=== PATIENT | female | born 1985 | race Caucasian/White ===

== ENCOUNTER → 2018-02-24 16:43 | Outpatient (CLI) | payer OTHER, SELFPAY ==
[2018-02-24 17:23] LABS: Absolute Lymphocyte Count 2.28 X10^3/ul (0.83-4.51); Absolute Neutrophil Count 3.9 X10^3/uL (2.0-7.7); Basophil# 0.03 X10^3/uL; Basophil% 0.4 % (0-1); Eosinophil# 0.22 X10^3/uL; Eosinophils% 3.2 % (0-5); Hemoglobin 12.9 g/dl (12.0-15.0); Lymphocyte # 2.28 X10^3/ul (4.0); Lymphocyte % 33.3 % (19-41); Mean Corp Hgb Conc 33.1 g/gl (32-36); Mean Corpuscular Hgb 30.1 pg (27.0-32.0); Mean Corpuscular Volume 91.1 fL (81-99); Mean Platelet Vol. 11.4 fl (6.2-12.0); Monocyte# 0.39 X10^3/uL; Monocyte% 5.7 % (0-10); Neutrophil # 3.92 X10^3/uL (2.7-7.7); Neutrophil % 57.3 % (47-70); Platelet Count 231 K/mm3 (150-450); RBC Distribution Width CV 12.6 % (11.6-14.6); RBC Distribution Width SD 41.6 fl (35.1-43.9); Red Blood Count 4.28 M/mm3 (4.2-5.4); White Blood Count 6.9 K/mm3 (4.4-11.0)
[2018-02-24 17:25] LABS: POSITIVE COUNT NO; POSITIVE DIFFERENTIAL NO; POSITIVE MORPHOLOGY NO
[2018-02-24 17:50] LABS: Vitamin D,25 Hydroxy 37.7 ng/mL (29.95-100.01)
[2018-02-24 17:51] LABS: Anion Gap 7 (5-15); BUN 14 mg/dL (7-18); BUN/Creat Ratio 17.8 RATIO (10-20); Calcium,Total 8.9 mg/dL (8.5-10.1); Chloride 104 mmol/L (98-107); Creatinine, Serum 0.78 mg/dL (0.55-1.02); EST Glomerular Filtration Rate 89 mL/min (>60); Est Glom Filt Rate - Afr Amer 108 mL/min (>60); Glucose 88 mg/dL (74-106); Potassium 4.1 mmol/L (3.5-5.1); Sodium Level 142 mmol/L (136-145); T4 Free Direct 0.94 ng/dL (0.76-1.46); Thyroid Stim Hormone (TSH) 1.59 uIU/mL (0.358-3.74)
== END ==
PROVIDERS: Family Provider Family Medicine; PCP Family Medicine; Visit Provider Family Medicine
DX: F32.9 Major depressive disorder, single episode, unspecified (principal); E03.9 Hypothyroidism, unspecified; E55.9 Vitamin D deficiency, unspecified
CPT/HCPCS: 36415; 80048; 82306; 84439; 84443; 85025

== ENCOUNTER → 2019-04-27 15:03 | Outpatient (CLI) | payer BC, SELFPAY ==
[2019-04-27 17:36] LABS: Absolute Lymphocyte Count 1.37 X10^3/uL (0.83-4.51); Absolute Neutrophil Count 9.1 X10^3/uL (2.0-7.7); Basophil# 0.03 X10^3/uL; Basophil% 0.3 % (0-1); Eosinophil# 0.01 X10^3/uL; Eosinophils% 0.1 % (0-5); Hematocrit 42.8 % (37-47); Hemoglobin 13.5 g/dL (12.0-15.0); Lymphocyte # 1.37 X10^3/ul (4.0); Lymphocyte % 12.7 % (19-41); Mean Corp Hgb Conc 31.5 g/dL (32-36); Mean Corpuscular Hgb 29.9 pg (27.0-32.0); Mean Corpuscular Volume 94.7 fL (81-99); Mean Platelet Vol. 10.6 fl (6.2-12.0); Monocyte# 0.23 X10^3/uL; Monocyte% 2.1 % (0-10); NRBC Flagged by Analyzer 0 % (0-5); Neutrophil # 9.08 X10^3/uL (2.7-7.7); Neutrophil % 83.8 % (47-70); Platelet Count 316 K/mm3 (150-450); RBC Distribution Width CV 12.2 % (11.6-14.6); RBC Distribution Width SD 42.5 fl (35.1-43.9); Red Blood Count 4.52 M/mm3 (4.2-5.4); White Blood Count 10.8 K/mm3 (4.4-11.0)
[2019-04-27 17:57] LABS: Vitamin D,25 Hydroxy 30.5 ng/mL (29.95-100.01)
[2019-04-27 18:17] LABS: ALB/GLOB Ratio 1.1 RATIO (0.9-2.4); AST(SGOT) 14 U/L (15-37); Alanine Aminotransfer ALT/SGPT 33 U/L (13-56); Alkaline Phosphatase 70 U/L (45-117); Anion Gap 8 (5-15); BUN 22 mg/dL (7-18); BUN/Creat Ratio 26.1 RATIO (10-20); Chloride 103 mmol/L (98-107); Creatinine, Serum 0.84 mg/dL (0.55-1.02); EST Glomerular Filtration Rate 81 mL/min (>60); Est Glom Filt Rate - Afr Amer 98 mL/min (>60); Globulin 3.7 g/dL (2.2-4.2); Glucose 111 mg/dL (74-106); Potassium 4.3 mmol/L (3.5-5.1); Protein, Total 7.7 g/dL (6.4-8.2); Sodium Level 140 mmol/L (136-145); T4 Free Direct 1.01 ng/dL (0.76-1.46); Thyroid Stim Hormone (TSH) 0.54 uIU/mL (0.358-3.74)
[2019-05-02 13:52] LABS: V-Zoster IgG (Immunity) 1633 index (Immune >165)
== END ==
PROVIDERS: Family Provider Family Medicine; PCP Family Medicine; Visit Provider Family Medicine
DX: Z01.84 Encounter for antibody response examination (principal); J45.901 Unspecified asthma with (acute) exacerbation; E03.9 Hypothyroidism, unspecified; B34.9 Viral infection, unspecified; R42 Dizziness and giddiness
CPT/HCPCS: 36415; 80053; 82306; 84439; 84443; 85025; 86787

== ENCOUNTER → 2020-01-30 16:00 | Outpatient (CLI) | payer BC, SELFPAY ==
[2020-01-30 16:58] LABS: Absolute Lymphocyte Count 2.09 X10^3/uL (0.83-4.51); Absolute Neutrophil Count 4.4 X10^3/uL (2.0-7.7); Basophil# 0.05 X10^3/uL; Basophil% 0.7 % (0-1); Eosinophil# 0.21 X10^3/uL; Eosinophils% 2.9 % (0-5); Hemoglobin 12.5 g/dL (12.0-15.0); Lymphocyte # 2.09 X10^3/ul (4.0); Lymphocyte % 29.1 % (19-41); Mean Corp Hgb Conc 32.1 g/dL (32-36); Mean Corpuscular Hgb 30.5 pg (27.0-32.0); Mean Corpuscular Volume 95.1 fL (81-99); Mean Platelet Vol. 10.9 fl (6.2-12.0); Monocyte# 0.47 X10^3/uL; Monocyte% 6.5 % (0-10); NRBC Flagged by Analyzer 0 % (0-5); Neutrophil # 4.35 X10^3/uL (2.7-7.7); Neutrophil % 60.5 % (47-70); Platelet Count 261 K/mm3 (150-450); RBC Distribution Width CV 12.1 % (11.6-14.6); RBC Distribution Width SD 42.2 fl (35.1-43.9); White Blood Count 7.2 K/mm3 (4.4-11.0)
[2020-01-30 18:23] LABS: Anion Gap 7 (5-15); BUN 22 mg/dL (7-18); BUN/Creat Ratio 23.7 RATIO (10-20); Calcium,Total 8.9 mg/dL (8.5-10.1); Chloride 103 mmol/L (98-107); Creatinine, Serum 0.93 mg/dL (0.55-1.02); EST Glomerular Filtration Rate 72 mL/min (>60); Est Glom Filt Rate - Afr Amer 88 mL/min (>60); Glucose 99 mg/dL (74-106); Potassium 3.6 mmol/L (3.5-5.1); Sodium Level 139 mmol/L (136-145); T4 Free Direct 1.05 ng/dL (0.76-1.46); Thyroid Stim Hormone (TSH) 1.66 uIU/mL (0.358-3.74)
== END ==
PROVIDERS: PCP Family Medicine; Visit Provider Family Medicine
DX: E03.9 Hypothyroidism, unspecified (principal); F41.9 Anxiety disorder, unspecified; R53.83 Other fatigue
CPT/HCPCS: 36415; 80048; 84439; 84443; 85025

== ENCOUNTER → 2020-02-14 11:00 | Outpatient (CLI) | payer BC, SELFPAY ==
[2020-02-02 10:01] VITALS: BMI 35.1
== END ==
PROVIDERS: PCP Family Medicine; Visit Provider Internal Medicine Critical Care Medicine
DX: G47.10 Hypersomnia, unspecified (principal)
CPT/HCPCS: 95806

== ENCOUNTER → 2022-04-25 | Outpatient (CLI) | payer BC, SELFPAY ==
[2022-04-25 09:59] LABS: Absolute Lymphocyte Count 1.84 X10^3/uL (0.83-4.51); Absolute Neutrophil Count 4.1 X10^3/uL (2.0-7.7); Basophil# 0.03 X10^3/uL; Basophil% 0.5 % (0-1); Eosinophil# 0.27 X10^3/uL; Eosinophils% 4.1 % (0-5); Hematocrit 39.4 % (37-47); Hemoglobin 12.7 g/dL (12.0-15.0); Lymphocyte # 1.84 X10^3/ul (0.83-4.51); Mean Corp Hgb Conc 32.2 g/dL (32-36); Mean Corpuscular Hgb 30.5 pg (27.0-32.0); Mean Corpuscular Volume 94.7 fL (81-99); Mean Platelet Vol. 10.5 fl (6.2-12.0); Monocyte# 0.36 X10^3/uL; Monocyte% 5.5 % (0-10); NRBC Flagged by Analyzer 0 % (0-5); Neutrophil # 4.06 X10^3/uL (2.7-7.7); Neutrophil % 61.7 % (47-70); Platelet Count 274 K/mm3 (150-450); RBC Distribution Width CV 12.1 % (11.6-14.6); Red Blood Count 4.16 M/mm3 (4.2-5.4); White Blood Count 6.6 K/mm3 (4.4-11.0)
[2022-04-25 10:10] LABS: Vitamin D,25 Hydroxy 58.5 ng/mL
[2022-04-25 10:15] LABS: ALB/GLOB Ratio 0.9 RATIO (0.9-2.4); AST(SGOT) 13 U/L (15-37); Alanine Aminotransfer ALT/SGPT 24 U/L (13-56); Albumin, Serum 3.3 g/dL (3.2-5.0); Alkaline Phosphatase 50 U/L (45-117); Anion Gap 6 (5-15); BUN 11 mg/dL (7-18); BUN/Creat Ratio 12.5 RATIO (10-20); Chloride 107 mmol/L (98-107); Cholesterol 191 mg/dL (200); Creatinine, Serum 0.88 mg/dL (0.55-1.02); EST Glomerular Filtration Rate 76 mL/min (>60); Est Glom Filt Rate - Afr Amer 92 mL/min (>60); Globulin 3.8 g/dL (2.2-4.2); Glucose 87 mg/dL (74-106); High Density Lipoprotein 63 mg/dL; Potassium 4.1 mmol/L (3.5-5.1); Protein, Total 7.1 g/dL (6.4-8.2); Sodium Level 142 mmol/L (136-145); Triglycerides 206 mg/dL
[2022-04-25 10:16] LABS: T4 Free Direct 0.92 ng/dL (0.76-1.46); Thyroid Stim Hormone (TSH) 2.95 uIU/mL (0.358-3.74); Very Low Density Lipoprotein 41 mg/dL (5-40)
== END | disposition home or self-care (01) ==
LOC: MTLAB 08:15
PROVIDERS: PCP Family Medicine; Referring Provider Family Medicine; Visit Provider Family Medicine
DX: Z00.00 Encounter for general adult medical examination without abnormal findings (principal); E03.9 Hypothyroidism, unspecified; E55.9 Vitamin D deficiency, unspecified; J45.909 Unspecified asthma, uncomplicated
CPT/HCPCS: 36415; 80053; 80061; 82306; 84439; 84443; 85025

== ENCOUNTER → 2022-09-04 | Outpatient (CLI) | payer BC, SELFPAY ==
[2022-09-04 18:51] LABS: T4 Free Direct 0.95 ng/dL (0.76-1.46); Thyroid Stim Hormone (TSH) 1.75 uIU/mL (0.358-3.74)
== END | disposition home or self-care (01) ==
LOC: BFHLAB 16:32
PROVIDERS: PCP Family Medicine; Visit Provider Family Medicine
DX: E03.9 Hypothyroidism, unspecified (principal)
CPT/HCPCS: 36415; 84439; 84443

== ENCOUNTER → 2022-09-15 | Outpatient (CLI) | payer BC, SELFPAY ==
[2022-09-15 12:36] LABS: Erythrocyte Sedimentation Rate 6 mm/hr (0-30)
[2022-09-15 12:49] LABS: ALB/GLOB Ratio 0.9 RATIO (0.9-2.4); AST(SGOT) 19 U/L (15-37); Alanine Aminotransfer ALT/SGPT 23 U/L (13-56); Albumin, Serum 3.2 g/dL (3.2-5.0); Alkaline Phosphatase 43 U/L (45-117); Anion Gap 4 (5-15); BUN 17 mg/dL (7-18); BUN/Creat Ratio 19.2 RATIO (10-20); CRP 5.06 mg/L (0.0-3.0); Calcium,Total 9.1 mg/dL (8.5-10.1); Chloride 104 mmol/L (98-107); Creatinine, Serum 0.89 mg/dL (0.55-1.02); EST Glomerular Filtration Rate 75 mL/min (>60); Est Glom Filt Rate - Afr Amer 91 mL/min (>60); Globulin 3.6 g/dL (2.2-4.2); Glucose 95 mg/dL (74-106); Magnesium 2.1 mg/dL (1.6-2.6); Potassium 3.9 mmol/L (3.5-5.1); Protein, Total 6.8 g/dL (6.4-8.2); Sodium Level 138 mmol/L (136-145)
[2022-09-16 13:08] LABS: Anti-Centromere B Ab <0.2 AI (0.0-0.9); Anti-Chromatin <0.2 AI (0.0-0.9); Anti-Jo <0.2 AI (0.0-0.9); Anti-Scleroderma-70 AB <0.2 AI (0.0-0.9); RNP Ab <0.2 AI (0.0-0.9); SJOGREN'S Anti-SS-A test < 0.2 AI (0.0-0.9); SJOGREN'S Anti-SS-B test < 0.2 AI (0.0-0.9); Smith Ab <0.2 AI (0.0-0.9)
[2022-09-16 19:53] LABS: Anti-dsDNA Ab 1 IU/mL (0-9)
== END | disposition home or self-care (01) ==
LOC: BIMLAB 10:53
PROVIDERS: PCP Internal Medicine; Referring Provider Internal Medicine; Visit Provider Internal Medicine
DX: M79.604 Pain in right leg (principal); M79.605 Pain in left leg; F41.9 Anxiety disorder, unspecified
CPT/HCPCS: 36415; 80053; 83735; 85652; 86140; 86225; 86235

== ENCOUNTER → 2023-01-08 | Outpatient (CLI) | payer BC, SELFPAY ==
--- NOTE | 2023-01-08 13:06 | VDLE_ITS ---
Reason For Study: Left leg pain RIGHT LEFT CFV is compressible, spontaneous, phasic, GSV is normal. competent and demonstrates normal CFV is compressible, spontaneous, phasic, augmentation. competent, and demonstrates normal Procedure augmentation. This is a venous duplex using B-mode, color FV is compressible, spontaneous, phasic, flow and spectral Doppler. competent and demonstrates normal Exam performed in department. augmentation. A preliminary report was called and/or faxed POP V is compressible, spontaneous, phasic, to Jolynn KHOURY. competent and demonstrates normal augmentation. T/P Trunk is compressible. LT PerV is compressible. Acute deep vein thrombosis is noted in the PTV. It is dilated and NONCOMPRESSIBLE. VL/Venous Duplex US, Unilateral Interpretation Summary Acute deep venous thrombosis left posterior tibial vein Patent and compressible left great saphenous vein Normal flow patterns right common femoral vein Ordering Physician: Jolynn Erickson Referring Physician: Laurence Oates Performed By: Shobha Eldridge RVT
== END | disposition home or self-care (01) ==
LOC: CVS 13:05
PROVIDERS: PCP Internal Medicine
DX: M79.662 Pain in left lower leg (principal)
CPT/HCPCS: 93971

== ENCOUNTER → 2023-01-17 | Outpatient (CLI) | payer BC, SELFPAY ==
--- NOTE | 2023-01-17 09:18 | MRI_ITS ---
EXAM: MR LEFT LOWER EXTREMITY WITHOUT INTRAVENOUS CONTRAST, ANKLE CLINICAL INDICATION: Pain TECHNIQUE: Multiplanar and multisequence MR images of the left ankle without intravenous contrast. COMPARISON: January 05, 2023 FINDINGS: LIGAMENTS: ANTERIOR TALOFIBULAR: Anterior talofibular ligament is not well seen and may be chronically disrupted. Signal alteration involving the superficial and deep fibers of the deltoid ligamentous complex may represent an up to moderate grade sprain injury. Remaining ligaments of the ankle are intact. POSTERIOR TALOFIBULAR: Unremarkable. Intact. ANTERIOR TIBIOFIBULAR: Unremarkable. Intact. POSTERIOR TIBIOFIBULAR: Unremarkable. Intact. CALCANEOFIBULAR: Unremarkable. Intact. DELTOID: See above. SPRING: Unremarkable. Intact. LISFRANC: Unremarkable. Intact. TENDONS: ACHILLES: Unremarkable. Intact. FLEXOR: Unremarkable. Intact. EXTENSOR: Unremarkable. Intact. PERONEAL: Unremarkable. Intact. TIBIALIS ANTERIOR: Unremarkable. Intact. TIBIALIS POSTERIOR: Unremarkable. Intact. MUSCLES: Muscles are normal. FLUID: Small to moderate posterior subtalar joint effusion. No tibiotalar joint effusion. SINUS TARSI: Sinus Tarsi is normal. TARSAL TUNNEL: Unremarkable. PLANTAR FASCIA: Mild thickening of the central cord of plantar aponeurosis although there is no evidence for active plantar fasciitis fasciitis. CARTILAGE: Unremarkable. No osteochondral lesion. Articular cartilage intact. BONES/JOINTS: Unremarkable. No bone marrow signal alterations. No osteochondral lesions or defects at the tibiotalar articulation. OTHER SOFT TISSUES: Tendons are intact. No tenosynovitis. MRI/Lower Ext Joint Only (Routine) IMPRESSION: 1. Anterior talofibular ligament is not well seen and may be chronically disrupted. Signal alteration involving the superficial and deep fibers of the deltoid ligamentous complex may represent an up to moderate grade sprain injury. 2. Mild thickening of the central cord of plantar aponeurosis although there is no evidence for active plantar fasciitis fasciitis. 3. Small to moderate posterior subtalar joint effusion. Electronically Signed: Inder Mandujano MD at 22:37 EDT ,
== END | disposition home or self-care (01) ==
LOC: MRI 09:12
PROVIDERS: PCP Internal Medicine
DX: S93.05XA Dislocation of left ankle joint, initial encounter (principal); X58.XXXA Exposure to other specified factors, initial encounter
CPT/HCPCS: 73721

== ENCOUNTER 2023-02-02 12:07 | Emergency (ER) | payer BC, SELFPAY ==
[2023-02-02 12:09] VITALS: BP 135/85; PULSE 84; RESP 14; TEMP 36.1; O2SAT 95; BMI 34.2
--- NOTE | 2023-02-02 12:50 | RAD_ITS ---
STUDY: X-RAY - RIGHT FOOT CLINICAL: Female, 37 years old. Pain following injury. TECHNIQUE: 3 view(s) of the foot. COMPARISON: Comparison is made with prior study February 01, 2015. FINDINGS: Normal talus, calcaneus, and tarsal bones. Normal visualized subtalar, talonavicular, calcaneocuboid, tarsal and tarsometatarsal articulations. Normal metatarsi. Normal metatarsophalangeal joint of the great toe. Normal tibial and fibular sesamoid bones. Normal interphalangeal joint of the great toe. Normal phalanges of the great toe. Normal second through fifth metatarsophalangeal joints. Normal interphalangeal joints and phalanges of the lesser toes. The soft tissue structures are unremarkable. RAD/Foot min 3 Views IMPRESSION: Normal x-ray examination of the foot. Electronically Signed: Eduardo Rodrigues MD at 13:54 EDT ,
--- NOTE | 2023-02-02 13:12 | CT_ITS ---
STUDY: CT BRAIN WITHOUT CONTRAST REASON FOR EXAM: Female, 37 years old. Trampled by a horse. The patient is on anticoagulants. RADIATION DOSAGE (If Supplied By Facility): CTDIvol = ( 44.99 ) mGy, DLP = ( 796.11 ) mGycm TECHNIQUE: Transaxial CT imaging of the brain was performed without administration of intravenous contrast material. Individualized dose optimization techniques were used for this CT. COMPARISON: No relevant priors. FINDINGS: Normal soft tissue structures. Normal calvarium. Normal size ventricles and extra-axial spaces for the patient''s age. Normal white matter tracts of the cerebral hemispheres. Normal basal ganglia and thalami. Normal brainstem. Normal cerebellum. There is no intracranial hemorrhage. There are no findings of an acute ischemic infarction. Mucosal thickening of the left maxillary sinus. Prior ORIF of the bilateral anterior maxillary condon. CT/Brain/Head without Contrast IMPRESSION: Normal unenhanced CT scan of the brain. Electronically Signed: Eduardo Rodrigues MD at 14:00 EDT ,
--- NOTE | 2023-02-02 13:12 | CT_ITS ---
STUDY: CT CHEST WITHOUT CONTRAST REASON FOR EXAM: Female, 37 years old. Blunt trauma left. The patient is on anticoagulants. RADIATION DOSAGE (If Supplied By Facility): CTDIvol = ( 16.76 ) mGy, DLP = ( 489.82 ) mGycm TECHNIQUE: Transaxial imaging was performed without the administration of intravenous contrast material. Multiplanar coronal and sagittal images were reformatted. Individualized dose optimization techniques were used for this CT. COMPARISON: No relevant priors. FINDINGS: CHEST The lungs are normal. There is no demonstrated pleural abnormality. Normal heart and pericardium. Normal mediastinum. Normal hilar regions. Normal unenhanced pulmonary arteries. Normal aorta arch and descending thoracic aorta. There are mild degenerative changes of the thoracic spine. There is no demonstrated abnormality of the visualized upper abdomen. CT/Chest without Contrast IMPRESSION: Normal unenhanced CT chest examination. Electronically Signed: Eduardo Rodrigues MD at 14:04 EDT ,
--- NOTE | 2023-02-02 13:14 | EDS_ITS ---
HPI History of Present Illness Chief Complaint: Trauma Informant: patient Narrative Narrative: Patient states she was leading a horse and the horse became spooked, knocked her down onto her stomach, she laid prone covered the back of her head while the horse then trampled over her. She felt the horse hit both lower extremities, her left upper back, and her hand as it was covering her head. She denies any loss of consciousness. She jumped up and was able to stand and walk without any difficulty. She is on a apixaban because of a DVT and this is the main reason she presents because of the risk of internal bleeding with injury. She has no abdominal or low back discomfort or neurologic symptoms. [facility] Medical History Anal fissure Anxiety Asthma Depression Environmental allergies Hypersomnia Hypothyroid Obesity Plantar fasciitis Vitamin D deficiency Home Medications cetirizine 10 mg tablet 5 mg PO DAILY 02/01/15 [History Last Taken 07/18/15 22:00] albuterol sulfate 90 mcg/actuation aerosol inhaler (Ventolin HFA) 2 puff inhalation Q6H PRN 02/02/20 [History Last Taken Unknown] ascorbate calcium (vitamin C) 500 mg tablet 500 mg PO DAILY 02/02/20 [History Last Taken Unknown] azelastine 0.05 % eye drops 1 drp ophthalmic (eye) BID PRN 02/02/20 [History Last Taken Unknown] cholecalciferol (vitamin D3) 125 mcg (5,000 unit) capsule 125 mcg PO DAILY 02/02/20 [History Last Taken Unknown] multivitamin 1 cap PO DAILY 02/02/20 [History Last Taken Unknown] citalopram 10 mg tablet (Celexa) 10 mg PO DAILY 09/15/22 [History Last Taken Unknown] magnesium 250 mg tablet 250 mg PO DAILY 09/15/22 [History Last Taken Unknown] norgestimate-ethinyl estradiol 0.18 mg/0.215mg/0.25mg-35 mcg(28)tablet (Tri- Sprintec (28)) 1 tab PO DAILY 09/15/22 [History Last Taken Unknown] montelukast 10 mg tablet 10 mg PO DAILY #90 tabs 10/21/22 [Rx Last Taken Unknown] levothyroxine 88 mcg tablet 88 mcg PO DAILY #30 tabs 12/17/22 [Rx Last Taken Unknown] naproxen 500 mg tablet 500 mg PO BID PRN pain #30 tabs 01/05/23 [Rx Last Taken Unknown] apixaban 5 mg tablet (Eliquis) 5 mg PO BID DVT 3 months #180 tabs 01/08/23 [Rx Last Taken Unknown] meloxicam 15 mg tablet 15 mg PO DAILY Pain #30 tabs 01/08/23 [Rx Last Taken Unknown] Allergy/AdvReac Type Severity Reaction Status Date / Time sulfamethoxazole Allergy Mild Itching Verified 02/02/23 12:09 [From Bactrim] trimethoprim [From Bactrim] Allergy Mild Itching Verified 02/02/23 12:09 penicillin Allergy Rash Verified 02/02/23 12:09 clarithromycin [From Biaxin] AdvReac Abd Verified 02/02/23 12:09 cramps/diarrhea Family History Mother Hypertension CVA (cerebral vascular accident) Hyperlipidemia Father Hypertension Grandmother CAD (coronary artery disease) Surgical History History of history of fistulotomy History of mandibular surgery Social History household members: spouse, significant other and children current occupational status: employed 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 [employer] Smoking Status: Never smoker Electronic Cigarette Use: not used alcohol intake: current alcohol intake frequency: holidays/special occasions only substance use type: does not use do you feel safe at home: Yes ROS ROS ED Constitutional Constitutional ED: Denies chills or fever(s) Eyes Eyes: Denies change in vision or diplopia ENT ENT ED: Denies ear pain, epistaxis, facial pain or rhinorrhea Cardiovascular Cardiovascular: Denies chest pain or palpitations Respiratory/Chest Respiratory/Chest: Denies cough or dyspnea Gastrointestinal Gastrointestinal: Denies abdominal pain, diarrhea, melena, nausea or vomiting Genitourinary Genitourinary ED: Denies dysuria or hematuria Musculoskeletal Musculoskeletal: Reports extremity pain; Denies back pain or neck pain Integumentary Reports other Details: Bruises ; Denies abscess, Abrasions, laceration or rash Neurologic Neurologic: Reports headache(s); Denies confusion, paresthesias or weakness EXAM Physical Exam Const Vital Signs: 02/02/23 12:09 02/02/23 12:17 Temperature 97 F L Temperature Source Temporal Pulse Rate 84 Respiratory Rate 14 Respiratory Effort Normal Non-Labored Blood Pressure 135/85 H Blood Pressure Mean 101 Pulse Ox 95 Oxygen Delivery Method Room Air Room Air Positive well nourished and well developed General Appearance ED: well developed and NAD HEENT Reports TM's clear and nasal mucous membranes and turbinates normal atraumatic Face and Sinus: Negative for facial tenderness Tympanic Membrane ED: Yes TM's clear Eyes PERRL and EOMs intact bilaterally Visual Acuity: other Other Details: no entrapment or pain with extraocular movements Neck full ROM and supple General: Negative for tenderness Chest Wall inspection of chest normal and palpation of chest normal Chest: symmetrical chest wall rise; Negative for crepitus or tenderness Resp normal respiratory effort and clear to auscultation bilaterally Percussion: other equal BS bilat Cardio no murmurs Rate: regular rate Rhythm: regular rhythm GI normal to inspection, nondistended, normoactive bowel sounds, soft to palpation and non-tender Back/Spine normal ROM Back/Spine Narrative: Only area of objective trauma and tenderness is over the left scapula. Nothing in her low back. Cervical Spine: Negative for cervical spine tenderness Thoracic Spine / Upper Back: Negative for thoracic spinal tenderness Lumbar Spine / Lower Back: Negative for lumbar spinal tenderness Extremity normal to inspection and full ROM Extremity Narrative: Old contusion right lateral mid lower leg nontender. New contusion medial left calf proximally but distal to the knee joint, tender there but not at the tibia or the fibula. Tender and normal in appearance to the medial aspect of the right forefoot, not including the lateral malleolus or any other parts of the foot. No deformities, full range of motion of the right ankle and all other joints of all 4 extremities, she does have pain in this left scapula with abduction of the left shoulder but she is able to do so without difficulty and there is no deformity or tenderness at the acromion, subacromial fossa, or the humerus. Acromioclavicular joints nontender bilaterally and the clavicles are nontender. General Extremety ED: Yes tenderness Neuro oriented x3, CN's II-XII intact bilaterally, moves all extremities, no focal motor deficits and no sensory deficits noted [place] Coma Scale: document GCS findings Spontaneous Obeys Commands Oriented 15 Sensorium / Orientation: awake and alert Psych mental status grossly normal and thought process normal Skin no wounds Lesions: no lesions Rashes: no rashes MDM MDM MDM Narrative Medical decision making narrative: I am at a very low suspicion of internal injury here. Because of the mechanism and the trauma to her left periscapular area I think a CT of the chest is warranted in addition to a CT of the head, both of which since this just happened even though she does not have significant chest symptoms, I do not think she needs an abdominal or retroperitoneal CT/imaging although we discussed the and she is in agreement. The only area of her extremities that she needs x- rayed right now is her right foot which is done as well. She had to go to the bathroom so we did obtain a urine sample which we sent for urinalysis to screen for bleeding as well. There is a very trace amount of blood in it without any red blood cells, I do not think this is indicating a renal injury, we discussed what to watch for and reasons to return. Three-view x-ray series of the right foot on my interpretation negative, radiology in agreement. I reviewed the CT images of the head and the chest, as well as the interpretation which I agree with, basically negative for any acute injury. I am at a very low pretest probability/suspicion for a lung or intrathoracic organ injury, which is why I avoided contrast and we were not needing to do her abdomen/pelvis at this time. She was given Tylenol, and ice pack for the area of her left upper back which is hurting more than anything else, and instructions for follow-up. Lab Data Attestation: I reviewed the patient's lab results. Labs: Laboratory Results - last 24 hr 02/02/23 13:45 Urine Color Yellow Urine Clarity Sl. Cloudy Urine pH 7.0 Ur Specific [place] 1.010 Urine Protein Negative Urine Glucose (UA) Normal Urine Ketones Negative Urine Occult Blood 10 H Urine Nitrite Negative Urine Bilirubin Negative Urine Urobilinogen Normal Ur Leukocyte Esterase 500 H Urine RBC 0-5 SEEN Urine WBC 50-100 SEEN Ur Squamous Epith Cells 10-25 SEEN Ur Transition Epith Cell 0-5 SEEN Urine Bacteria 1+ Urine Mucus 0 SEEN Radiography Diagnostic Testing: Clinical Impression(s) from Imaging Studies Foot X-Ray 02/02/23 12:50 IMPRESSION: Normal x-ray examination of the foot. Electronically Signed: Eduardo Rodrigues MD at 13:54 EDT , Brain CT 02/02/23 13:12 IMPRESSION: Normal unenhanced CT scan of the brain. Electronically Signed: Eduardo Rodrigues MD at 14:00 EDT , Chest CT 02/02/23 13:12 IMPRESSION: Normal unenhanced CT chest examination. Electronically Signed: Eduardo Rodrigues MD at 14:04 EDT , Discharge Plan Triage Chief Complaint: Trauma ED Provider: Hira Mccabe Dx/Rx/DC Orders Clinical Impression: Anticoagulated, Back contusion, Contusion of left calf, Closed head injury without loss of consciousness, Contusion of foot, right Instructions: ED Foot Contusion, ED Back Contusion, ED Head Injury (Adult) Prescriptions: No Action cholecalciferol (vitamin D3) 125 mcg (5,000 unit) capsule 125 mcg PO DAILY azelastine 0.05 % drops 1 drp OPHTHALMIC BID PRN albuterol sulfate [Ventolin HFA] 90 mcg/actuation HFA aerosol inhaler 2 puff INHALATION Q6H PRN ascorbate calcium (vitamin C) 500 mg tablet 500 mg PO DAILY multivitamin capsule 1 cap PO DAILY citalopram [Celexa] 10 mg tablet 10 mg PO DAILY magnesium 250 mg tablet 250 mg PO DAILY norgestimate-ethinyl estradiol [Tri-Sprintec (28)] 0.18/0.215/0.25 mg-35 mcg (28) tablet 1 tab PO DAILY naproxen 500 mg tablet 500 mg PO BID PRN (Reason: pain) Qty: 30 0RF Hold Instructions: Order Changed meloxicam 15 mg tablet 15 mg PO DAILY Qty: 30 0RF Hold Instructions: Order Changed Rx Instructions: Do not take in conjunction with other NSAIDs. Tylenol is okay. Eliquis 5 mg tablet 5 mg PO BID 90 Days Qty: 180 0RF Rx Instructions: 10mg twice a day for 7 days. Then 5 mg twice a day for 3 months. cetirizine 10 MG tablet 5 mg PO DAILY montelukast 10 mg tablet 10 mg PO DAILY Qty: 90 0RF levothyroxine 88 mcg tablet 88 mcg PO DAILY Qty: 30 4RF Primary Care Provider: Laurence Oates Referrals: Laurence Oates MD [Primary Care Provider] - 3-5 Days if not improving Activity Restrictions/Additional Instructions: Your urine showed have symptoms this will be sent for culture and if positive in a couple days you should get a phone call from us but follow-up with your doctor to make sure you review the results. Disposition Disposition: Home, Self Care
[2023-02-02 13:53] LABS: Mucous, Urine 0 SEEN /hpf (<or=2+)
[2023-02-02 13:54] LABS: Color, Urine Yellow (Yellow); Glucose, Dipstick Normal (Normal); Ketone-Dipstick Negative (Negative); Leukocyte Esterase-Dipstick 500 /ul (Negative); Nitrite-Dipstick Negative (Negative); Occult Blood-Urine 10 /ul (Negative); Protein-Dipstick Negative (Negative); Urine Bilirubin Dipstick Negative (Negative); Urine Clarity Sl. Cloudy (Clear); Urine Urobilinogen Normal (Normal)
[2023-02-02] MEDS: Acetaminophen 500 MG Tablet 1000 MG PO (13:58)
[2023-02-02 14:10] LABS: Red Blood Cells-Urine 0-5 SEEN /hpf (0-5); Squamous Epithelial Cells - UA 10-25 SEEN /hpf (5-10); White Blood Cells 50-100 SEEN /hpf (0-5)
[2023-02-02 14:11] LABS: Bacteria 1+ /hpf (None Seen); Transitional Epithelial - Ur 0-5 SEEN /hpf (0-5)
[2023-02-02 14:22] VITALS: BP 131/71; PULSE 81; RESP 14; O2SAT 98
== END 2023-02-02 14:25 | disposition home or self-care (01) ==
PROVIDERS: Emergency Provider Emergency Medicine; PCP Internal Medicine; Visit Provider Emergency Medicine
DX: S20.229A Contusion of unspecified back wall of thorax, initial encounter (principal); S80.12XA Contusion of left lower leg, initial encounter; S09.90XA Unspecified injury of head, initial encounter; S90.31XA Contusion of right foot, initial encounter; Z79.01 Long term (current) use of anticoagulants; Z86.718 Personal history of other venous thrombosis and embolism; X58.XXXA Exposure to other specified factors, initial encounter
CPT/HCPCS: 70450; 71250; 73630; 81001; 87077; 87086; 87088; 99283

== ENCOUNTER → 2023-04-06 | Outpatient (CLI) | payer OTHER, SELFPAY ==
[2023-04-06 12:12] LABS: Absolute Lymphocyte Count 1.74 X10^3/uL (0.83-4.51); Basophil# 0.04 X10^3/uL; Basophil% 0.8 % (0-1); Eosinophil# 0.15 X10^3/uL; Eosinophils% 2.9 % (0-5); Hematocrit 42.9 % (37-47); Hemoglobin 13.4 g/dL (12.0-15.0); Lymphocyte # 1.74 X10^3/ul (0.83-4.51); Lymphocyte % 33.1 % (19-41); Mean Corp Hgb Conc 31.2 g/dL (32-36); Mean Corpuscular Hgb 29.6 pg (27.0-32.0); Mean Corpuscular Volume 94.9 fL (81-99); Mean Platelet Vol. 11.2 fl (6.2-12.0); Monocyte# 0.29 X10^3/uL; Monocyte% 5.5 % (0-10); NRBC Flagged by Analyzer 0 % (0-5); Neutrophil # 3.03 X10^3/uL (2.7-7.7); Neutrophil % 57.5 % (47-70); Platelet Count 274 K/mm3 (150-450); RBC Distribution Width CV 12.4 % (11.6-14.6); RBC Distribution Width SD 43.2 fl (35.1-43.9); Red Blood Count 4.52 M/mm3 (4.2-5.4); White Blood Count 5.3 K/mm3 (4.4-11.0)
[2023-04-06 12:45] LABS: Vitamin D,25 Hydroxy 62.5 ng/mL
[2023-04-06 14:34] LABS: ALB/GLOB Ratio 0.9 RATIO (0.9-2.4); AST(SGOT) 22 U/L (15-37); Alanine Aminotransfer ALT/SGPT 32 U/L (13-56); Albumin, Serum 3.4 g/dL (3.2-5.0); Alkaline Phosphatase 54 U/L (45-117); Anion Gap 7 (5-15); BUN 19 mg/dL (7-18); BUN/Creat Ratio 20.9 RATIO (10-20); Calcium,Total 8.7 mg/dL (8.5-10.1); Chloride 106 mmol/L (98-107); Creatinine, Serum 0.91 mg/dL (0.55-1.02); EST Glomerular Filtration Rate 73 mL/min (>60); Est Glom Filt Rate - Afr Amer 89 mL/min (>60); Globulin 3.8 g/dL (2.2-4.2); Glucose 81 mg/dL (74-106); Potassium 3.9 mmol/L (3.5-5.1); Protein, Total 7.2 g/dL (6.4-8.2); Rheumatoid Factor < 10.0 IU/mL (<15); Sodium Level 139 mmol/L (136-145); Thyroid Stim Hormone (TSH) 2.52 uIU/mL (0.358-3.74)
[2023-04-07 13:07] LABS: CCP IgG Antibodies 8 units (0-19)
[2023-04-08 13:08] LABS: Anti-Nuclear Antibody Test Negative (.)
== END | disposition home or self-care (01) ==
LOC: BIMLAB 08:10
PROVIDERS: PCP Internal Medicine; Referring Provider Internal Medicine; Visit Provider Internal Medicine
DX: E03.9 Hypothyroidism, unspecified (principal); F41.9 Anxiety disorder, unspecified; R53.83 Other fatigue; E56.9 Vitamin deficiency, unspecified
CPT/HCPCS: 36415; 80053; 82306; 84443; 85025; 86038; 86200; 86431

== ENCOUNTER → 2023-04-16 | Outpatient (CLI) | payer OTHER, SELFPAY ==
--- NOTE | 2023-04-16 12:38 | VDLE_ITS ---
Reason For Study: pain Procedure LEFT This is a venous duplex using B-mode, color GSV is normal. flow and spectral Doppler. CFV is compressible, spontaneous, phasic, Exam performed in department. competent, and demonstrates normal The exam was abbreviated due to the COVID 19 augmentation. protocol. FV is compressible, spontaneous, phasic, The exam was diagnostic. competent and demonstrates normal A preliminary report was called and/or faxed augmentation. to Jolynn KHOURY. POP V is compressible, spontaneous, phasic, competent and demonstrates normal augmentation. T/P Trunk is compressible. PTV is compressible. LT PerV is compressible. Previous PTV DVT from 01/08/23 has resolved. VL/Venous Duplex US, Unilateral Interpretation Summary Deep veins of the left lower extremity are patent and compressible segmentally. There is no evidence of left lower extremity deep vein thrombosis. The left great saphenous vein yesica ears patent and compressible segmentally. Resolution of prior thrombus Ordering Physician: Jolynn Erickson Referring Physician: Jolynn Erickson Performed By: Jeremy Sarmiento, RVT
== END | disposition home or self-care (01) ==
LOC: CVS 12:38
PROVIDERS: PCP Internal Medicine
DX: I82.442 Acute embolism and thrombosis of left tibial vein (principal)
CPT/HCPCS: 93971

== ENCOUNTER → 2023-05-06 | Outpatient (CLI) | payer OTHER, SELFPAY ==
[2023-05-11 14:08] LABS: Antithrombin 3 Function 84 % (75-135); Dilute Prothrombin Time (dPT) 37.3 sec (0.0-47.6); Dilute Russell Viper Venom 41.1 sec (0.0-47.0); Factor VIII Activity 127 % (56-140); Interpretation Comment: (.); PTT-LA 37.7 sec (0.0-43.5); Protein C Antigen 98 % (60-150); Protein S, Free 78 % (61-136); Protein S, Total 56 % (60-150); Thrombin Time 18.8 sec (0.0-23.0); dPT Confirm Ratio 1.08 Ratio (0.00-1.34)
== END | disposition home or self-care (01) ==
LOC: BIMLAB 09:39
PROVIDERS: PCP Internal Medicine; Visit Provider Internal Medicine
DX: I82.409 Acute embolism and thrombosis of unspecified deep veins of unspecified lower extremity (principal); Z82.49 Family history of ischemic heart disease and other diseases of the circulatory system
CPT/HCPCS: 36415; 81241; 85240; 85245; 85300; 85302; 85305; 85306

== ENCOUNTER → 2023-05-26 | Outpatient (CLI) | payer OTHER, SELFPAY | END | disposition home or self-care (01) | PROVIDERS: PCP Internal Medicine; Referring Provider Internal Medicine; Visit Provider Internal Medicine | DX: R07.89 Other chest pain (principal); N76.0 Acute vaginitis; B96.89 Other specified bacterial agents as the cause of diseases classified elsewhere | CPT/HCPCS: 87070; 87077; 87205; 87633 ==

== ENCOUNTER → 2023-08-10 | Outpatient (CLI) | payer OTHER, SELFPAY | END | disposition home or self-care (01) | LOC: LABSPEC 13:25 | PROVIDERS: PCP Internal Medicine; Referring Provider Nurse Practitioner Women's Health; Visit Provider Nurse Practitioner Women's Health | DX: N76.0 Acute vaginitis (principal); B96.89 Other specified bacterial agents as the cause of diseases classified elsewhere | CPT/HCPCS: 87070; 87077; 87186; 87205 ==

== ENCOUNTER → 2023-08-21 | Outpatient (CLI) | payer OTHER, SELFPAY ==
--- NOTE | 2023-08-21 09:29 | BI_ITS ---
MAMMOGRAPHY - BILATERAL DIAGNOSTIC REASON FOR EXAM: Female, 37 years old. Fullness in the upper outer quadrant of the left breast. PERTINENT HISTORY: Non-contributory. TECHNIQUE: Digital bilateral breast susannah (3D mammographic acquisition) in the CC and MLO projections. 2-D mediolateral oblique (MLO) and craniocaudad (CC) views of both breasts were obtained. CAD: Full Field Digital Mammography with Computer Added Detection was performed. COMPARISON: Comparison is made with prior outside examination dated January 04, 2020. FINDINGS: Breast Composition: The breasts are extremely dense, which lowers the sensitivity of mammography. There are no dominant masses or suspicious calcifications. No other significant abnormalities are identified. There has been no significant change since the prior study. BI/DIAG MAMM W/CAD, BILAT IMPRESSION: Stable bilateral diagnostic mammogram. With the patient''s history of a fullness in the upper outer quadrant of the left breast, targeted ultrasound correlation is recommended. ASSESSMENT CATEGORY: BIRADS Category 0: Incomplete. Need additional imaging evaluation. A letter regarding these results will be sent to the patient by the facility within 30 days. Approximately 10% of breast cancers are not detected by mammography. A normal mammogram should not delay biopsy of a clinically suspicious abnormality. Electronically Signed: Eduardo Rodrigues MD at 12:32 EST ,
--- NOTE | 2023-08-21 09:29 | US_ITS ---
STUDY: ULTRASOUND BREAST - LEFT REASON FOR EXAM: Female, 37 years old. Palpable lump left breast. TECHNIQUE: Axial and longitudinal images of the LEFT breast were performed with a high resolution ultrasound transducer. # OF IMAGES: 15 COMPARISON: Comparison is made with prior mammogram done earlier in the day. FINDINGS: LEFT Breast: The upper outer quadrant of the left breast was examined with ultrasound. There is dense fibroglandular tissue. No sonographic abnormality is seen. US/Breast Limited Unilateral IMPRESSION: Dense fibroglandular tissue. No sonographic abnormality is seen. ASSESSMENT CATEGORY: BIRADS Category 2: Benign. A letter regarding these results will be sent to the patient by the facility within 30 days. Electronically Signed: Eduardo Rodrigues MD at 12:33 EST ,
--- OUTSIDE RECORDS SUMMARY | 2023-08-21 09:46 | XMS RPT_ITS | CCD ---
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 clitoris and check the clitoral vásquez, followed by urethra, perineum and anal area also. Look for redness, swelling, dark spots or light spots, blisters or bumps. Some Suggested Vulvar Pain & Itching measures If you get irritated easily, we suggest: Minimizing irritation of the vulva (area around the vagina): Wear white cotton underwear. Avoid synthetic fabrics and tight clothing. Sleep wearing shorts or pajama bottoms without underwear. Shower as soon as possible after exercise. Avoid clothing detergents and soaps with perfumes or dyes. Use warm (not hot) water to wash the vulva and if you use soap use a product designed for sensitive skin (like Dove or Cetaphil). Extra rinsing to make sure all detergent residues is gone. Do not douche or use creams/powders in the vulvar area unless instructed by your physician. Rinse with water after using the bathroom.Make sure the vulva is dry before dressing by patting dry with a towel. Avoid vigorous rubbing with the towel. You may want to use the blow dryer (on the cool setting only!) on the vulva. The most important way to let your body heal is by avoiding scratching. Many patients find it difficult to avoid scratching at night when they are most aware of the itchiness. You can try taking Benadryl just before bedtime. Some women find it helpful to wear cotton gloves to bed to avoid scratching at night. Watch out for irritants e.g. condoms or spermicidal creams Important Things to Remember About Vulvar Pain: Vulvar pain can be difficult to treat. Treatment may take months. Some women may have spontaneous remission of symptoms, while others may need multiple attempts with medical management. Vulvar pain is not generally associated with malignancy. It is usually not associated with sexually transmitted disease and is not contagious to your partner and Vulvar pain is usually not due to poor hygiene. Use gentle soap or no soap, allowing water alone to cleanse the perineum.Treatment setbacks can occur; they are not the faults of your ricardo care provider or you. WE UNDERSTAND THAT CHRONIC PAIN IS EXHAUSTING AND MAYBE DEMORALIZING: It is not about you, there is nothing wrong with you as a person, and the problem is your pain- It is good to seek knowledge and second opinion and to get involved in a support group documented in this encounter [facility] 09-12-2022 Note HNO ID: [id number] Author: Dena Kim APRN.DREDGING INSPECTOR Service: ? Author Type: Nurse Practitioner Type: Progress Notes Filed: 09/12/2022 3:01 PM Note Text: [employer] Insurance offered: Patient declines. Daisy He is a 36 year old female who presents for vaginal intermittent discharge and cramping for 1 week(s). Symptoms are fairly mild compared to other BV occurrences. Spotting x 1 day. Treated for BV 04/25/2022 and 08/08/2022 Takes Clairvee routinely. Vaginal discharge: white milky, had blood tinge one day. Itching: No Dyspareunia: No Fever/chills: No Abdominal pain: No Bladder: Negative for dysuria or frequency Bowel: No blood in stool, pain with BM, tarry stool, persistent diarrhea or constipation Any new sexual partners or concern for STD exposure: No, same partner x 1 year Any history of STDs: None Does your partner have any new complaints: No Are you currently taking any medications to treat vaginitis: No Do you use feminine sprays, douches or deodorants: No Menstrual cycle: cycles every 28 days and 3-4 days of flow Contraception: combined hormonal contraceptives Last pap: 2018, normal Past medical, surgical, social history, medications and allergies reviewed and updated. OBJECTIVE: BP 104/62 Wt 187 lb (84.8kg) LMP 08/20/2022 GENERAL: Well developed, well nourished in no apparent distress ABDOMEN: soft, non-tender, and no masses PELVIC: external genitalia normal, normal Bartholin's glands, urethra, [place]'s glands, no vulvar lesions, no cervical lesions, good vaginal support, small amount white discharge present, normal appearing perineal body and perianal region BIMANUAL: uterus normal size, shape and consistency, no adnexal masses, and non-tender. ASSESSMENT/PLAN: 1. Acute vaginitis - ICD9: 616.10, ICD10: N76.0 - Continue probiotic. - RepHresh/boric acid - SUGEY / TRICHOMONAS AMPLIFICATION - BACTERIAL VAGINOSIS AMPLIFICATION - Vulvar hygiene instructions. Consider use of condoms. Will notify of results. Follow- up as needed. Dena Kim APRN.ANA Medical Decision Making: Problems: Low: Acute, uncomplicated illness or injury Data: Unique test result(s) reviewed: 2 Unique test(s) ordered: 3+ Medical Decision Making Level: 3 - Low [facility] 09-12-2022 Instructions Dena Kim APRN.ANA - 09/12/2022 2:52 PM EST Vaginal boric acid RepHresh Minimizing irritation of the vulva (area around the vagina) Wear white cotton underwear. Avoid synthetic fabrics and tight clothing. Sleep wearing shorts or pajama bottoms without underwear. Shower as soon as possible after exercise. Avoid clothing detergents and soaps with perfumes or dyes. Use warm (not hot) water to wash the vulva and if you use soap use a product designed for sensitive skin (like Dove or Cetaphil). Dove unscented bar soap. Do not douche or use creams/powders in the vulvar area unless instructed by your physician. If you must douche, use only plain warm water. Make sure the vulva is dry before dressing by patting dry with a towel. Avoid vigorous rubbing with the towel. You may want to use the blow dryer (on the cool setting only!) on the vulva. The most important way to let your body heal is by avoiding scratching. Many patients find it difficult to avoid scratching at night when they are most aware of the itchiness. You can try taking Benadryl just before bedtime. Some women find it helpful to wear cotton gloves to bed to avoid scratching at night. documented in this encounter [facility] 09-12-2022 History of Presen t illness Narrative [employer] Insurance offered: Patient declines. Daisy He is a 36 year old female who presents for vaginal intermittent discharge and cramping for 1 week(s). Symptoms are fairly mild compared to other BV occurrences. Spotting x 1 day. Treated for BV 04/25/2022 and 08/08/2022 Takes Clairvee routinely. Vaginal discharge: white milky, had blood tinge one day. Itching: No Dyspareunia: No Fever/chills: No Abdominal pain: No Bladder: Negative for dysuria or frequency Bowel: No blood in stool, pain with BM, tarry stool, persistent diarrhea or constipation Any new sexual partners or concern for STD exposure: No, same partner x 1 year Any history of STDs: None Does your partner have any new complaints: No Are you currently taking any medications to treat vaginitis: No Do you use feminine sprays, douches or deodorants: No Menstrual cycle: cycles every 28 days and 3-4 days of flow Contraception: combined hormonal contraceptives Last pap: 2018, normal Past medical, surgical, social history, medications and allergies reviewed and updated. OBJECTIVE: BP 104/62 Wt 187 lb (84.8kg) LMP 08/20/2022 GENERAL: Well developed, well nourished in no apparent distress ABDOMEN: soft, non-tender, and no masses PELVIC: external genitalia normal, normal Bartholin's glands, urethra, [place]'s glands, no vulvar lesions, no cervical lesions, good vaginal support, small amount white discharge present, normal appearing perineal body and perianal region BIMANUAL: uterus normal size, shape and consistency, no adnexal masses, and non-tender. ASSESSMENT/PLAN: 1. Acute vaginitis - ICD9: 616.10, ICD10: N76.0 - Continue probiotic. - RepHresh/boric acid - SUGEY / TRICHOMONAS AMPLIFICATION - BACTERIAL VAGINOSIS AMPLIFICATION - Vulvar hygiene instructions. Consider use of condoms. Will notify of results. Follow- up as needed. Dena Kim APRN.CNP Medical Decision Making: Problems: Low: Acute, uncomplicated illness or injury Data: Unique test result(s) reviewed: 2 Unique test(s) ordered: 3+ Medical Decision Making Level: 3 - Low documented in this encounter [facility] 08-11-2022 Miscellaneous Notes Addended by: BEHZAD VAZQUEZ RN on: 08/11/2022 08:26 AM Modules accepted: Orders documented in this encounter [facility] 08-08-2022 Note HNO ID: [id number] Author: Gabby Sheffield APRN.CNM Service: ? Author Type: Booking Supervisor Type: Progress Notes Filed: 08/08/2022 3:40 PM Note Text: Daisy He is a 36 year old female who presents for vaginal itching, discharge and pelvic pressure for the past week. History of bacterial vaginosis on 01/29/22 and 04/25/22. Patient diligently practicing vulvar/vaginal hygiene. Sexually active in monogamous relationship and declines STD screening today. Vaginal discharge: moderate amount, thick, and white. Itching: YES Dyspareunia: No Fever/chills: No Abdominal pain: No Bladder: Negative for dysuria or frequency Bowel: No blood in stool, pain with BM, tarry stool, persistent diarrhea or constipation Any new sexual partners or concern for STD exposure: No Any history of STDs: None Does your partner have any new complaints: No Are you currently taking any medications to treat vaginitis: No but taking Clairvee due to hx of bacterial vaginosis Do you use feminine sprays, douches or deodorants: No Menstrual cycle: LMP 07/23/22- Contraception: combined hormonal contraceptives Last pap: 2018, normal Past medical, surgical, social history, medications and allergies reviewed and updated. OBJECTIVE: BP 110/68 Wt 184 lb 9.6 oz (83.7kg) LMP 07/23/2022 GENERAL: Well developed, well nourished in no apparent distress ABDOMEN: soft, non-tender, and no masses PELVIC: external genitalia normal, normal Bartholin's glands, urethra, [place]'s glands, no vulvar lesions, no cervical lesions, good vaginal support, physiologic discharge present, normal appearing perineal body and perianal region, cervix friable BIMANUAL: uterus normal size, shape and consistency, no adnexal masses, non-tender, and no cervical motion tenderness. RECTOVAGINAL: deferred. ASSESSMENT/PLAN: 1. Recurrent vaginitis - ICD9: 616.10, ICD10: N76.0 - SUGEY / TRICHOMONAS AMPLIFICATION - BACTERIAL VAGINOSIS AMPLIFICATION - Continue taking Clairvee - Possible referral to Dr. Fonseca for evaluation 2. Pelvic pressure - UA- positive for trace blood and leukocytes- would like to wait on culture results prior to treatment - URINE CULTURE Will notify patient of results RTO- for annual with MEGAN Sheffield APRN.CNM [facility] 08-08-2022 History of Presen t illness Narrative Daisy He is a 36 year old female who presents for vaginal itching, discharge and pelvic pressure for the past week. History of bacterial vaginosis on 01/29/22 and 04/25/22. Patient diligently practicing vulvar/vaginal hygiene. Sexually active in monogamous relationship and declines STD screening today. Vaginal discharge: moderate amount, thick, and white. Itching: YES Dyspareunia: No Fever/chills: No Abdominal pain: No Bladder: Negative for dysuria or frequency Bowel: No blood in stool, pain with BM, tarry stool, persistent diarrhea or constipation Any new sexual partners or concern for STD exposure: No Any history of STDs: None Does your partner have any new complaints: No Are you currently taking any medications to treat vaginitis: No but taking Clairvee due to hx of bacterial vaginosis Do you use feminine sprays, douches or deodorants: No Menstrual cycle: LMP 07/23/22- Contraception: combined hormonal contraceptives Last pap: 2018, normal Past medical, surgical, social history, medications and allergies reviewed and updated. OBJECTIVE: BP 110/68 Wt 184 lb 9.6 oz (83.7kg) LMP 07/23/2022 GENERAL: Well developed, well nourished in no apparent distress ABDOMEN: soft, non-tender, and no masses PELVIC: external genitalia normal, normal Bartholin's glands, urethra, [place]'s glands, no vulvar lesions, no cervical lesions, good vaginal support, physiologic discharge present, normal appearing perineal body and perianal region, cervix friable BIMANUAL: uterus normal size, shape and consistency, no adnexal masses, non-tender, and no cervical motion tenderness. RECTOVAGINAL: deferred. ASSESSMENT/PLAN: 1. Recurrent vaginitis - ICD9: 616.10, ICD10: N76.0 - SUGEY / TRICHOMONAS AMPLIFICATION - BACTERIAL VAGINOSIS AMPLIFICATION - Continue taking Clairvee - Possible referral to Dr. Fonseca for evaluation 2. Pelvic pressure - UA- positive for trace blood and leukocytes- would like to wait on culture results prior to treatment - URINE CULTURE Will notify patient of results RTO- for annual with PAP Gabby Sheffield APRN.CNM documented in this encounter [facility] 07-16-2022 Note HNO ID: [id number] Author: Elva Virgen APRN.CNM Service: ? Author Type: Booking Supervisor Type: Progress Notes Filed: 07/17/2022 10:37 AM Note Text: [employer] Insurance offered: Patient declines. Daisy is a 36 year old who presents for an annual gynecologic exam without complaints. Going through divorce, dating new partner for 9 months. Daughters, 12 and 7. Medical Assistance at [facility]. Menses: cycles every 28 days and 3-4 days of flow. Denies any warning signs ACHES Contraception: combined hormonal contraceptives, condoms, and withdrawal HPV vaccine: No Last Pap: 02/19/2018 normal HPV: 02/16/2018 negative History of abnormal pap: Yes Last mammogram: 2019normal Sexually active: Yes Time with current partner: Going through divorce. Dating new partner in last 9 months- STD testing in last year Pain with intercourse: No Postcoital bleeding: No Exercise: No Diet: regular Seatbelt use: Yes OB History T2 L2 SAB0 IAB0 Ectopic0 Multiple0 Live Births2 Public Health Staff Nurse History LMP: 06/26/2022 (Exact Date), Having periods Age at Menarche: Age at First : Age at Menopause: Public Health Staff Nurse History Comments: Sexual Activity: Yes; Male Contraception: Pill PAST MEDICAL HISTORY Diagnosis Date Allergic rhinitis, cause unspecified Allergy, airborne subst Anal fistula 2013 Chronic anxiety History of pre-eclampsia in prior , currently Pure hyperglyceridemia Temporomandibular joint disorders, unspecified Unspecified asthma(493.90) only flares w/ illness Unspecified hypothyroidism ??? subclinical (TSH 5-6), see phone encounter 02/04 PAST SURGICAL HISTORY Procedure Laterality Date DELIVERY ONLY 2009 , low transverse DELIVERY ONLY 07/19/15 , low transverse PAST SURGICAL HISTORY OF 07/2006 jaw surgery due to bite abnomalitiy SURG TX ANAL FISTULA INTERSPHINCTERIC 10/25/13 posterior superficial FAMILY HISTORY Problem Relation Age of Onset Hypertension Mother Asthma Mother Diabetes Mother GESTATIONAL DIABETES ONLY other (goiter) Mother no hypothyroidism Stroke Mother Hypertension Father Cancer Maternal Grandmother PANCREATIC CANCER Thyroid Paternal Grandmother ?? specifics Alzheimer's Disease Paternal Grandmother Diabetes Maternal Uncle SOCIAL HISTORY Social History Tobacco Use Smoking status: Never Smokeless tobacco: Never Vaping Use Vaping Use: Never used Substance Use Topics Alcohol use: Yes Comment: Seldom Drug use: No REVIEW OF SYSTEMS Abdomen: No abdominal pain, nausea, vomiting, diarrhea, or constipation. No bloating, early satiety, indigestion, or increased flatulence. Bladder: No dysuria, gross hematuria, urinary frequency, urinary urgency, or incontinence. Breast: No breast lumps, nipple d/c, overlying skin changes, redness or skin retraction. Allergies and current medication updated:Yes EXAM: BP 106/64 Ht 5' 2 (1.58m) Wt 181 lb 12.8 oz (82.5kg) LMP 06/26/2022 BMI 33.24 kg/(m2). GENERAL: pleasant, female in no apparent distress HEENT: Normocephalic, atraumatic, mucus membranes moist, and no lesions NECK: Supple, full range of motion, no adenopathy, and thyroid normal DERMATOLOGY: Normal, without lesions, non-icteric, and non-hirsute BREAST: soft, non-tender, symmetric, no dominant mass, normal nipple-areolar complex, no lymphadenopathy, and no nipple discharge CHEST: Clear to auscultation, Normal inspiratory effort, Regular rate and rhythm, and No murmurs, clicks, rubs or gallops ABDOMEN: soft, non-tender, and no masses PELVIC: external genitalia normal, normal Bartholin's glands, urethra, [place]'s glands, no vulvar lesions, no cervical lesions, good vaginal support, physiologic discharge present, normal appearing perineal body and perianal region BIMANUAL: uterus normal size, shape and consistency, no adnexal masses, non-tender, and no cervical motion tenderness RECTOVAGINAL: rectovaginal exam negative for any masses or nodularity. NEURO: alert and oriented x3,exam grossly non-focal EXTREMITIES: normal ASSESSMENT/PLAN: ASSESSMENT/PLAN: 1. Encounter for gynecological examination with abnormal finding - ICD9: V72.31, ICD10: Z01.411 (primary diagnosis) - Completed pelvic and breast exam - Encouraged monthly BSE - Follow up for annual exam in one year. 2. Encounter for surveillance of contraceptive pills - ICD9: V25.41, ICD10: Z30.41 - discussed with patient on how to take OCP's. - counseled on benefits, risks and possible severe side effects of OCP's. - discussed need to use Condoms to help to prevent STD's including HIV etc. 3. Class 1 obesity due to excess calories without serious comorbidity with body mass index (BMI) of 33.0 to 33.9 in adult - ICD9: 278.00, V85.33, ICD10: E66.09, Z68.33 Stable - Behavioral intervention 1) Health maintenance: Pap/HPV up to date. 2) Contraception: combined hormonal contr (more content not included)... [facility] 07-16-2022 Instructions Elva Virgen APRN.CNM - 07/16/2022 11:14 AM EST ACOG Screening Guidelines The following health screening schedule is recommended by the [employer] (ACOG). Some of these tests may be ordered or performed by your primary care doctor. Pap test screening The pap test looks at cells on the cervix (the opening from the vagina to the uterus) to look for cancer or pre-cancerous changes. These changes are caused by the human papillomavirus (HPV). Studies estimate that half of all women will test positive for this virus within 3 years of starting sexual activity. For young women with a normal immune system, 90% of HPV infections will resolve within 2 years. There is a vaccine available against some forms of HPV. This is recommended for girls and women age 9-45. For ages 9-14, two injections are given at 0 and 6 months. For ages 15-45, three injections are given at 0,2 and 6 months. Because this vaccine does not protect against all HPV types which can cause cervical cancer, women who received the vaccine still need pap tests. Pap smear screening should be started at age 21. The pap test should be done every 3 years from age 21-29. From age 30-65, pap smears can be done every 5 years if HPV test is negative or every 3 years if HPV testing is not done. For women over the age of 65, ACOG recommends against screening women who have had adequate prior screening and are not otherwise at high risk for cervical cancer. Women who have had a hysterectomy also do not need routine pap smear screening unless the pap smear was done for a cervical cancer or moderate to severe dysplasia. Breast cancer screening Mammogram should be performed every 1-2 years starting at age 40 and every year starting at age 50. Screening may be started earlier depending on family history. Cholesterol screening Lipid panel (cholesterol test) should be checked every 5 years starting at age 45. Diabetes screening Fasting glucose (blood sugar) test should be performed every 3 years starting at age 45. Colorectal cancer screening Starting at age 45, women should have a screening colonoscopy at least every 10 years. Screening may be started earlier depending on family history. Thyroid screening Thyroid function test (TSH) should be checked every 5 years starting at age 50. Bone mineral density screening All postmenopausal women age 65 and over and postmenopausal women with risk factors for osteoporosis should have a bone mineral density test performed. Risk factors include race, family history of osteoporosis, personal history of fractures, poor nutrition, smoking, heavy alcohol use, early menopause, low calcium intake and low body weight. Certain medical conditions and long-term use of some medications may also increase risk. Body max Index (BMI) Your body mass index (BMI) is a measure of your body fat based on your weight and height. The number that is calculated will tell you if you fall into the normal, overweight or obese category. BMI Table Normal weight: BMI is between 19 and 24.9 Overweight: BMI is between 25 and 29.9 Obese: BMI is 30 and above Why is BMI important? Being overweight or obese (BMI over 25) can exacerbate or put you at risk for getting certain diseases, like the ones listed below: Arthritis Asthma Cancer Diabetes Mellitus Type 2 Heart Attack High blood pressure Hypertension Hyperlipidemia Kidney failure Other Lung diseases Sleep Apnea Stroke How can I lose weight: Choosing healthy foods in small portions and exercising regularly is a good way to start. The following are a few tips: Choose foods and snacks higher in protein and fiber. Reduce the amount of sugary drinks (like soda) and snacks (cookies, sweets, etc) Cut back on the amount of carbohydrates eaten daily (bread, pasta, rice, cakes) Drink at least 8 glasses of water per day - sometimes thirst feels like hunger - stay hydrated Chew your food slowly to savor the taste and allow the signal that you are full to register in your brain Exercise/Activity Exercise improves your blood flow and circulation, enhances your mood and can you to maintain or lose weight. A brisk walk for 30 mins or longer 4-5 times per week is recommended but you can also use DVD's at home such as Walk Away the Pounds, Juliane exercises, Yoga and others to get some variety. When do I need a referral? If you have tried all of the above and have not lost any weight, then you should ask your provider for a referral to a tumbler dyeing machine operator or medical weight risk management specialist who can help you reach your goals for being at your ideal body weight. Calcium and Vitamin D Supplementation (from the National Institutes of Health Office of Dietary Supplements 2011) Calcium is required by the body for blood vessel, muscle, hormone and nerve functioning. Most of the body's calcium is stored in the bones and teeth where it supports structure and function. Bone is continuously broken down and reformed. When bone breakdown exceeds formation, especially in postmenopausal women, bone loss can increase the risk of osteoporosis and fractures. In addition to low calcium intake, women who smoke, have a family history of osteoporosis, are thin, or , or who take certain medications such as cancer chemotherapy, seizure mediations and steroids are at increased risk of osteoporosis. The calcium requirements in women change with age. The National Institutes of Health (NIH) recommends: 1000mg elemental calcium for premenopausal women age 19-50 1200mg elemental calcium for postmenopausal women and all women over 50 Milk, yogurt, and cheese are rich natural sources of calcium and are the major food contributors in the [place]. For example, 8oz of milk (whole, lowfat or skim) contains about 300mg calcium, 8oz of yogurt contains 415mg. Nondairy sources include salmon and sardines and vegetables, such as Welsh cabbage, kale, and broccoli. Foods fortified with calcium include many fruit juices, tofu and cereals. For more food calcium content information, visit http://ods.od.nih.gov/factsheets /calcium. Calcium supplements come in several different forms. Remember that the recommendations are for millgrams (mg) of elemental calcium which may be less than the total weight of the supplement. The amount of elemental calcium is required to be printed on the label. Calcium carbonate is the least expensive form. It must be taken on a full stomach to be properly absorbed. Some patients may experience gas or constipation. Calcium phosphate and calcium citrate may be taken either with or without food and tend to have less side effects but are generally more expensive. Because of its ability to neutralize stomach acid, calcium carbonate is found in some [id number] antacid products, such as Tums and Rolaids . Depending on its strength, each chewable pill or softchew provides 200 to 400 mg of elemental calcium. The percentage of calcium absorbed depends on the total amount of elemental calcium consumed at one time. Absorption is highest in doses <500mg. So a woman who takes 1,000mg/day of calcium from supplements should split the dose and take 500mg at two separate times during the day. Too much calcium can cause kidney stones, constipation, difficulty absorbing other nutrients and calcium buildup in blood vessels. Women under 50 should not exceed 2500mg/day (2000mg/day for women over 50) of calcium from food and supplements. Excessive alcohol and caffeine intake can inhibit absorption of calcium. Calcium can reduce the absorption of some medications if taken at the same time of day (bisphosphonates, thyroid medication, Phenytoin and other seizure medications, some antibiotics and iron supplements). Vitamin D promotes calcium absorption in the gut and maintains adequate blood levels of calcium and phosphate for normal bone growth and bone remodeling. Vitamin D also helps regulate cell growth as well as nerve, muscle and immune system function. Vitamin D is produced in the skin as a result of ultraviolet sunlight rays and must be altered in the liver and kidney to become its active form. Recommended intake according to the National Institutes of Health is 600 International Units (IU) for girls and women ages 1-70 and 800 IU for women over 70. Very few foods in nature contain vitamin D. The flesh of fatty fish (such as salmon, tuna, and mackerel) and fish liver oils are among the best sources. Small amounts of vitamin D are found in beef liver, cheese, mushrooms and egg yolks. Most people meet at least some of their vitamin D needs through exposure to sunlight. Season, time of day, length of day, cloud cover, smog, skin melanin content, and sunscreen are among the factors that affect UV radiation exposure and vitamin D synthesis. Despite the importance of the sun for vitamin D synthesis, it is prudent to limit exposure of skin to sunlight and avoid tanning beds. UV radiation is a carcinogen responsible for most of the estimated 1.5 million skin cancers that occur annually in the [place]. Lifetime cumulative UV damage to skin is also responsible for some age-associated dryness and other cosmetic changes. In supplements and fortified foods, vitamin D is available in two forms, D2 (ergocalciferol) and D3 (cholecalciferol). The two are equivalent at normal supplement doses. For women who require high supplement doses because of vitamin D deficiency, D3 may work better to raise blood levels. Some medications can prevent proper absorption of Vitamin D. These include laxatives, corticosteroids like prednisone, the seizure drugs phenobarbital and phenytoin, the weight-loss drug orlistat ( Xenical and AlliTM) and the cholesterol-lowering drug cholestyramine (Questran , LoCholest , and Prevalite ). Talk to your doctor about adjusting your recommended daily vitamin D dosage if you take these medications. You should not exceed 4000 mg of vitamin D supplementation daily unless specifically prescribed by your doctor. Gardasil Gardasil is a vaccine to protect against Human Papillomavirus (HPV) types 6, 11, 16, 18, 31,33,45, 52, 58. These viruses cause cancer and precancerous lesions on the cervix (opening between vagina and uterus), in the vagina and on the vulva (skin around the outside of the vagina) as well as genital warts. The vaccine cannot cause these diseases and cannot treat them if already present. Gardasil works best if given before contact with HPV. Most people are exposed to HPV soon after starting sexual activity. The vaccine is recommended between the ages of 9 and 45. Gardasil does not protect against all strains of HPV. Women who receive the vaccine still need to have regular pelvic exams and cervical cancer screening with the pap smear. You should ask your doctor if Gardasil is right for you if you have a weakened immune system, a bleeding disorder, plan to become soon or have a current illness causing fever. Gardasil is not recommended for women. You should be sure your doctor is aware of any allergies you have and all medications and herbal supplements you take. Gardasil is given to those ages 9-14 in 2 doses at 0 and 8 months. In ages 15-45, three injections are given at 0,2,6 months. Common side effects include pain, redness, itching and swelling at the injection site, nausea, fever, dizziness and fainting. Rare but potentially serious reactions have been reported. These include allergic reaction, swollen glands, joint and muscle pain, weakness and Guillain-[place] syndrome. documented in this encounter [facility] 07-16-2022 History of Presen t illness Narrative [employer] Insurance offered: Patient declines. Daisy is a 36 year old who presents for an annual gynecologic exam without complaints. Going through divorce, dating new partner for 9 months. Daughters, 12 and 7. Medical Assistance at [facility]. Menses: cycles every 28 days and 3-4 days of flow. Denies any warning signs ACHES Contraception: combined hormonal contraceptives, condoms, and withdrawal HPV vaccine: No Last Pap: 02/19/2018 normal HPV: 02/16/2018 negative History of abnormal pap: Yes Last mammogram: 2020normal Sexually active: Yes Time with current partner: Going through divorce. Dating new partner in last 9 months- STD testing in last year Pain with intercourse: No Postcoital bleeding: No Exercise: No Diet: regular Seatbelt use: Yes OB History T2 L2 SAB0 IAB0 Ectopic0 Multiple0 Live Births2 Public Health Staff Nurse History LMP: 06/26/2022 (Exact Date), Having periods Age at Menarche: Age at First : Age at Menopause: Public Health Staff Nurse History Comments: Sexual Activity: Yes; Male Contraception: Pill PAST MEDICAL HISTORY Diagnosis Date Allergic rhinitis, cause unspecified Allergy, airborne subst Anal fistula 2013 Chronic anxiety History of pre-eclampsia in prior , currently Pure hyperglyceridemia Temporomandibular joint disorders, unspecified Unspecified asthma(493.90) only flares w/ illness Unspecified hypothyroidism ??? subclinical (TSH 5-6), see phone encounter 02/04 PAST SURGICAL HISTORY Procedure Laterality Date DELIVERY ONLY 2009 , low transverse DELIVERY ONLY 07/19/15 , low transverse PAST SURGICAL HISTORY OF 07/2006 jaw surgery due to bite abnomalitiy SURG TX ANAL FISTULA INTERSPHINCTERIC 10/25/13 posterior superficial FAMILY HISTORY Problem Relation Age of Onset Hypertension Mother Asthma Mother Diabetes Mother GESTATIONAL DIABETES ONLY other (goiter) Mother no hypothyroidism Stroke Mother Hypertension Father Cancer Maternal Grandmother PANCREATIC CANCER Thyroid Paternal Grandmother ?? specifics Alzheimer's Disease Paternal Grandmother Diabetes Maternal Uncle SOCIAL HISTORY Social History Tobacco Use Smoking status: Never Smokeless tobacco: Never Vaping Use Vaping Use: Never used Substance Use Topics Alcohol use: Yes Comment: Seldom Drug use: No REVIEW OF SYSTEMS Abdomen: No abdominal pain, nausea, vomiting, diarrhea, or constipation. No bloating, early satiety, indigestion, or increased flatulence. Bladder: No dysuria, gross hematuria, urinary frequency, urinary urgency, or incontinence. Breast: No breast lumps, nipple d/c, overlying skin changes, redness or skin retraction. Allergies and current medication updated:Yes EXAM: BP 106/64 Ht 5' 2 (1.58m) Wt 181 lb 12.8 oz (82.5kg) LMP 06/26/2022 BMI 33.24 kg/(m^2). GENERAL: pleasant, female in no apparent distress HEENT: Normocephalic, atraumatic, mucus membranes moist, and no lesions NECK: Supple, full range of motion, no adenopathy, and thyroid normal DERMATOLOGY: Normal, without lesions, non-icteric, and non-hirsute BREAST: soft, non-tender, symmetric, no dominant mass, normal nipple-areolar complex, no lymphadenopathy, and no nipple discharge CHEST: Clear to auscultation, Normal inspiratory effort, Regular rate and rhythm, and No murmurs, clicks, rubs or gallops ABDOMEN: soft, non-tender, and no masses PELVIC: external genitalia normal, normal Bartholin's glands, urethra, [place]'s glands, no vulvar lesions, no cervical lesions, good vaginal support, physiologic discharge present, normal appearing perineal body and perianal region BIMANUAL: uterus normal size, shape and consistency, no adnexal masses, non-tender, and no cervical motion tenderness RECTOVAGINAL: rectovaginal exam negative for any masses or nodularity. NEURO: alert and oriented x3,exam grossly non-focal EXTREMITIES: normal ASSESSMENT/PLAN: ASSESSMENT/PLAN: 1. Encounter for gynecological examination with abnormal finding - ICD9: V72.31, ICD10: Z01.411 (primary diagnosis) - Completed pelvic and breast exam - Encouraged monthly BSE - Follow up for annual exam in one year. 2. Encounter for surveillance of contraceptive pills - ICD9: V25.41, ICD10: Z30.41 - discussed with patient on how to take OCP's. - counseled on benefits, risks and possible severe side effects of OCP's. - discussed need to use Condoms to help to prevent STD's including HIV etc. 3. Class 1 obesity due to excess calories without serious comorbidity with body mass index (BMI) of 33.0 to 33.9 in adult - ICD9: 278.00, V85.33, ICD10: E66.09, Z68.33 Stable - Behavioral intervention 1) Health maintenance: Pap/HPV up to date. 2) Contraception: combined hormonal contraceptives, condoms, and withdrawal. Contraceptive options reviewed and information provided. 3) STD screening: Declined STD check- performed earlier this year. 4) Follow up one year or sooner as needed Kaley Mckenna, student DONALD Virgen APRN.ZULMA TEACHING RUG CLEANING SUPERVISOR NOTE OF PERSONAL INVOLVEMENT IN CARE: I have interviewed the patient and updated the RUG CLEANING SUPERVISOR student's PFS history, and ROS as necessary. I have re-performed the HPI, Physical Examination, Assessment and Plan. documented in this encounter [facility] 06-26-2022 Miscellaneous Notes Patient request for medication is as follows: Requested Prescriptions Pending Prescriptions Disp Refills TRI-SPRINTEC 0.18/0.215/0.25 mg-35 mcg (28) 28 tablet 11 Sig: Take 1 tablet by mouth once daily for 28 days. Last annual exam: 05/03/21 Please approve the above prescription(s) to electronically send to pharmacy. Nany Celaya RN documented in this encounter [facility] 04-25-2022 Note HNO ID: [id number] Author: Dena Kim APRN.DREDGING INSPECTOR Service: ? Author Type: Nurse Practitioner Type: Progress Notes Filed: 04/25/2022 8:17 AM Note Text: [employer] Insurance offered: Patient declines. Daisy He is a 36 year old female who presents for vaginal pruritis and discharge for 2 days. Prednisone a couple of weeks ago for asthma flare. 2 weeks ago, which was the week following normal menses, had bilateral breast tenderness and cramping. 4 home UPT negative. Requests urine testing. No dysuria, urinary urgency, frequency or blood in urine. No missed doses of Sprintec. Vaginal discharge: thick white cottage cheese-type Itching: YES Dyspareunia: N/A Fever/chills: No Abdominal pain: see HPI Bladder: Negative for dysuria or frequency Bowel: No blood in stool, pain with BM, tarry stool, persistent diarrhea or constipation Any new sexual partners or concern for STD exposure: No Any history of STDs: None Does your partner have any new complaints: No Are you currently taking any medications to treat vaginitis: Yes, Lotrisone helped a little but symptoms are more internal. Take Clairvee. Uses RepHresh sometimes during 2 weeks without Clairvee Do you use feminine sprays, douches or deodorants: No Menstrual cycle: cycles every 28 days and 4 days of flow Contraception: combined hormonal contraceptives Last pap: 2018, normal Past medical, surgical, social history, medications and allergies reviewed and updated. OBJECTIVE: BP 122/68 Wt 182 lb (82.6kg) LMP 04/02/2022 GENERAL: Well developed, well nourished in no apparent distress ABDOMEN: soft, non-tender, and no masses PELVIC: external genitalia normal, normal Bartholin's glands, urethra, [place]'s glands, no vulvar lesions, no cervical lesions, good vaginal support, moderate amount thick yellow-tinged discharge present, normal appearing perineal body and perianal region BIMANUAL: uterus normal size, shape and consistency, no adnexal masses, and non-tender. ASSESSMENT/PLAN: 1. Acute vaginitis - ICD9: 616.10, ICD10: N76.0 (primary diagnosis) - SUGEY / TRICHOMONAS AMPLIFICATION - BACTERIAL VAGINOSIS AMPLIFICATION - Monistat 7 or generic - a applicator full at bedtime every night for 7 nights. - Continue Clairvee 2. Pelvic cramping - ICD9: 625.9, ICD10: R10.2 - Normal menses, no missed OCP, 4 negative home UPT - UA DIP, URINE (POC) - small intact blood and large leuks - Urine culture 3. Breast tenderness - ICD9: 611.71, ICD10: N64.4 - bilateral - began week after menses and is improving - Normal menses, no missed OCP, 4 negative home UPT Will notify of results. Follow- up as needed. Dena Kim APRN.CNP Medical Decision Making: Problems: Minimal: Self-limited or minor problem Low: Acute, uncomplicated illness or injury Data: Unique test(s) ordered: 2 Risk: Moderate: Drug management Medical Decision Making Level: 3 - Low [facility] 02-18-2022 Instructions Dena Kim APRN.CNP - 02/18/2022 1:16 PM EDT Minimizing irritation of the vulva (area around the vagina) Wear white cotton underwear. Avoid synthetic fabrics and tight clothing. Sleep wearing shorts or pajama bottoms without underwear. Shower as soon as possible after exercise. Avoid clothing detergents and soaps with perfumes or dyes. Use warm (not hot) water to wash the vulva and if you use soap use a product designed for sensitive skin (like Dove or Cetaphil). Do not douche or use creams/powders in the vulvar area unless instructed by your physician. If you must douche, use only plain warm water. Make sure the vulva is dry before dressing by patting dry with a towel. Avoid vigorous rubbing with the towel. You may want to use the blow dryer (on the cool setting only!) on the vulva. The most important way to let your body heal is by avoiding scratching. Many patients find it difficult to avoid scratching at night when they are most aware of the itchiness. You can try taking Benadryl just before bedtime. Some women find it helpful to wear cotton gloves to bed to avoid scratching at night. documented in this encounter [facility] 02-18-2022 History of Presen t illness Narrative Daisy He is a 36 year old female who presents for problem visit recurrent vaginitis symptoms HPI: Completed Flagyl po for BV almost 2 weeks ago. Began with vaginal burning, pain where urine leaves body, white discharge and mild odor 4-5 days later and those symptoms continue Denies urinary frequency, does have some urgency but waits to void because she knows it will hurt. Did start Florajen Women and is following vulvar hygiene instructions. STD testing 12/31/2021 - did have unprotected SI with ex- approximately one week prior to STD testing. HSV negative 01/29/2022 OB History T2 L2 SAB0 IAB0 Ectopic0 Multiple0 Live Births2 Public Health Staff Nurse History LMP: 02/10/2022, Having periods Age at Menarche: Age at First : Age at Menopause: Public Health Staff Nurse History Comments: Sexual Activity: Yes; Male Contraception: Condom PAST MEDICAL HISTORY Diagnosis Date Allergic rhinitis, cause unspecified Allergy, airborne subst Anal fistula 2013 Chronic anxiety History of pre-eclampsia in prior , currently Pure hyperglyceridemia Temporomandibular joint disorders, unspecified Unspecified asthma(493.90) only flares w/ illness Unspecified hypothyroidism ??? subclinical (TSH 5-6), see phone encounter 02/04 PAST SURGICAL HISTORY Procedure Laterality Date DELIVERY ONLY 2009 , low transverse DELIVERY ONLY 07/19/15 , low transverse PAST SURGICAL HISTORY OF 07/2006 jaw surgery due to bite abnomalitiy SURG TX ANAL FISTULA INTERSPHINCTERIC 10/25/13 posterior superficial FAMILY HISTORY Problem Relation Age of Onset Hypertension Mother Asthma Mother Diabetes Mother GESTATIONAL DIABETES ONLY other (goiter) Mother no hypothyroidism Hypertension Father Cancer Maternal Grandmother PANCREATIC CANCER Thyroid Paternal Grandmother ?? specifics Alzheimer's Disease Paternal Grandmother Diabetes Maternal Uncle Social History Tobacco Use Smoking status: Never Smoker Smokeless tobacco: Never Used Substance Use Topics Alcohol use: Yes Comment: Seldom Drug use: No Current Outpatient Medications Medication Sig L. acidophilus/L. rhamnosus (FLORAJEN WOMEN ORAL) Take by mouth. clotrimazole-betamethasone (LOTRISONE) cream Apply 1 application to affected area twice daily. Magnesium 250 mg tab Take 250 mg by mouth. ascorbic acid, vitamin C, (VITAMIN C) 500 mg tablet Take 500 mg by mouth once daily. cyanocobalamin, vitamin B-12, (VITAMIN B-12 ORAL) Take by mouth. loratadine (CLARITIN) 10 mg tablet Take 10 mg by mouth once daily. Cholecalciferol, Vitamin D3, (VITAMIN D) 1,000 unit cap Take 1,000 Units by mouth once daily. Pt takes 2 capsules daily MULTIVITAMIN ORAL Take by mouth once daily. CITALOPRAM HYDROBROMIDE (CELEXA ORAL) Take by mouth. levothyroxine (SYNTHROID) 88 mcg tablet Take 1 tablet by mouth once daily. fluconazole (DIFLUCAN) 150 mg tablet Take 1 tablet today and repeat with second tablet in 3 days. (Patient not taking: Reported on 01/29/2022 ) phenazopyridine (PYRIDIUM) 200 mg tablet Take 1 tablet by mouth three times daily as needed. (Patient not taking: Reported on 01/29/2022 ) TRI-SPRINTEC 0.18/0.215/0.25 mg-35 mcg (28) Take 1 tablet by mouth once daily for 28 days. docosahexaenoic acid/epa (FISH OIL ORAL) Take by mouth. (Patient not taking: Reported on 05/03/2021 ) Phentermine HCl (ADIPEX-P) 37.5 mg capsule Take 37.5 mg by mouth. (Patient not taking: Reported on 05/03/2021) PARoxetine (PAXIL) 20 mg tablet (Patient not taking: Reported on 05/03/2021 ) No current facility-administered medications for this visit. Allergies As of Date: 02/18/2022 Allergen Noted Reaction ASHLIE [FEXOFENADINE HCL] 02/04/2007 Intolerance BIAXIN [CLARITHROMYCIN] 02/04/2007 GI Upset PENICILLINS 02/04/2007 Hives Fully Assessed 02/18/2022 REVIEW OF SYSTEMS Abdomen: No bloating, early satiety, indigestion, or increased flatulence. No abdominal pain, nausea, vomiting, diarrhea, or constipation. Bladder: see HPI Allergies and current medication updated:Yes EXAM: BP 98/62 Wt 177 lb (80.3kg) LMP 02/10/2022 GENERAL: pleasant, female in no apparent distress CHEST: Normal inspiratory effort ABDOMEN: soft, non-tender and no masses PELVIC: external genitalia normal, normal Bartholin's glands, urethra, [place]'s glands, no vulvar lesions, no cervical lesions, good vaginal support, normal appearing perineal body and perianal region. Moderate amount thick yellow vaginal discharge. BIMANUAL: uterus normal size, shape and consistency, no adnexal masses and non-tender NEURO: alert and oriented x3,exam grossly non-focal ASSESSMENT/PLAN: 1. Vaginal burning - ICD9: 625.8, ICD10: N94.9 (primary diagnosis) - UROGENITAL UR/MYCOPLASMA PCR - BACT/SUGEY VAG GRAM STAIN - GC/CHLAMYDIA DNA DET - Florajen Women or Clairvee probiotic daily for recurrent vaginitis symptoms. - Vulvar hygiene instructions 2. Vaginal odor - ICD9: 625.8, ICD10: N89.8 - BACT/SUGEY VAG GRAM STAIN - GC/CHLAMYDIA DNA DET 3. Dysuria - ICD9: 788.1, ICD10: R30.0 recurrent - UA positive for large amount antoinette esterase - may be vaginal discharge as nitrites are negative. - Send urine for culture - Begin treatment with Macrobid 100 mg BID for 7 days - Patient education for prevention given - URINE CULTURE - NITROFURANTOIN MONOHYDRATE & MACROCRYSTAL 100 MG ORAL CAP 4. Burn of urethra - ICD9: 947.8, ICD10: T28.3XXA - UROGENITAL UR/MYCOPLASMA PCR - BACT/SUGEY VAG GRAM STAIN - GC/CHLAMYDIA DNA DET - URINE CULTURE 5. Screen for STD (sexually transmitted disease) - ICD9: V74.5, ICD10: Z11.3 - GC/CHLAMYDIA DNA DET - Discussed condom use for safe sex. Will notify of results. Follow- up as needed. Dena Kim APRN.ANA Medical Decision Making: Problems: Low: Acute, uncomplicated illness or injury Moderate: 1+ chronic illnesses with change Data: Unique test(s) ordered: 3+ Risk: Moderate: Drug management Medical Decision Making Level: 4 - Moderate documented in this encounter [facility] 01-17-2022 History of Presen t illness Narrative Daisy He is a 36 year old female who presents for problem visit Dysuria and itching for 1 week(s). HPI: pt was treated with Cipro x3 day and Diflucan. She states that she felt better while taking the ATB but once she stopped her symptoms return. Still having dysuria and itching. OB History T2 L2 SAB0 IAB0 Ectopic0 Multiple0 Live Births2 Public Health Staff Nurse History LMP: 12/11/2021, Having periods Age at Menarche: Age at First : Age at Menopause: Public Health Staff Nurse History Comments: Sexual Activity: Yes; Male Contraception: Condom PAST MEDICAL HISTORY Diagnosis Date Allergic rhinitis, cause unspecified Allergy, airborne subst Anal fistula 2013 Chronic anxiety History of pre-eclampsia in prior , currently Pure hyperglyceridemia Temporomandibular joint disorders, unspecified Unspecified asthma(493.90) only flares w/ illness Unspecified hypothyroidism ??? subclinical (TSH 5-6), see phone encounter 02/04 PAST SURGICAL HISTORY Procedure Laterality Date DELIVERY ONLY 2009 , low transverse DELIVERY ONLY 07/19/15 , low transverse PAST SURGICAL HISTORY OF 07/2006 jaw surgery due to bite abnomalitiy SURG TX ANAL FISTULA INTERSPHINCTERIC 10/25/13 posterior superficial FAMILY HISTORY Problem Relation Age of Onset Hypertension Mother Asthma Mother Diabetes Mother GESTATIONAL DIABETES ONLY other (goiter) Mother no hypothyroidism Hypertension Father Cancer Maternal Grandmother PANCREATIC CANCER Thyroid Paternal Grandmother ?? specifics Alzheimer's Disease Paternal Grandmother Diabetes Maternal Uncle Social History Tobacco Use Smoking status: Never Smoker Smokeless tobacco: Never Used Substance Use Topics Alcohol use: Yes Comment: Seldom Drug use: No Current Outpatient Medications Medication Sig phenazopyridine (PYRIDIUM) 200 mg tablet Take 1 tablet by mouth three times daily as needed. clotrimazole-betamethasone (LOTRISONE) cream Apply 1 application to affected area twice daily. Magnesium 250 mg tab Take 250 mg by mouth. TRI-SPRINTEC 0.18/0.215/0.25 mg-35 mcg (28) Take 1 tablet by mouth once daily for 28 days. docosahexaenoic acid/epa (FISH OIL ORAL) Take by mouth. (Patient not taking: Reported on 05/03/2021 ) ascorbic acid, vitamin C, (VITAMIN C) 500 mg tablet Take 500 mg by mouth once daily. cyanocobalamin, vitamin B-12, (VITAMIN B-12 ORAL) Take by mouth. Phentermine HCl (ADIPEX-P) 37.5 mg capsule Take 37.5 mg by mouth. (Patient not taking: Reported on 05/03/2021) PARoxetine (PAXIL) 20 mg tablet (Patient not taking: Reported on 05/03/2021 ) loratadine (CLARITIN) 10 mg tablet Take 10 mg by mouth once daily. Cholecalciferol, Vitamin D3, (VITAMIN D) 1,000 unit cap Take 1,000 Units by mouth once daily. Pt takes 2 capsules daily MULTIVITAMIN ORAL Take by mouth once daily. CITALOPRAM HYDROBROMIDE (CELEXA ORAL) Take by mouth. levothyroxine (SYNTHROID) 88 mcg tablet Take 1 tablet by mouth once daily. No current facility-administered medications for this visit. Allergies As of Date: 01/17/2022 Allergen Noted Reaction ASHLIE [FEXOFENADINE HCL] 02/04/2007 Intolerance BIAXIN [CLARITHROMYCIN] 02/04/2007 GI Upset PENICILLINS 02/04/2007 Hives Fully Assessed 12/31/2021 REVIEW OF SYSTEMS Expanded ROS: N/A Allergies and current medication updated:Yes EXAM: LMP 12/11/2021 GENERAL: pleasant, female in no apparent distress HEENT: Normocephalic, atraumatic, mucus membranes moist and no lesions CHEST: Normal inspiratory effort PELVIC: external genitalia normal, normal Bartholin's glands, urethra, [place]'s glands, no vulvar lesions, no cervical lesions, good vaginal support, physiologic discharge present, normal appearing perineal body and perianal region, vaginal condon slightly inflamed NEURO: alert and oriented x3,exam grossly non-focal EXTREMITIES: normal ASSESSMENT/PLAN: 1. Dysuria - ICD9: 788.1, ICD10: R30.0 (primary diagnosis) acute - UA positive for antoinette esterase and hematuria - Send urine for culture - Begin treatment with Ciprofloxacin 500 mg BID for 7 days - Patient education for prevention given - UA DIP, URINE (POC) - URINE CULTURE - BACT/SUGEY VAG GRAM STAIN 2. Vaginal irritation - ICD9: 623.9, ICD10: N89.8 - BACT/SUGEY VAG GRAM STAIN Ellie Remy APRN.ANA Medical Decision Making: Problems: Low: Acute, uncomplicated illness or injury Data: Unique test(s) ordered: 2 Risk: Low: Low risk from testing/treatment Moderate: Drug management Medical Decision Making Level: 3 - Low documented in this encounter [facility] 01-16-2022 Miscellaneous Notes Patient called and appointment scheduled. Erin Ramirez RN Please schedule with DREDGING INSPECTOR for visit Ama Meek MD Please review in DM's absence. Patient was prescribed Cipro, Pyridium, and Lotrisone cream back on 01/07/22. Urine culture was not collected as patient was out of state. See mychart message below. Would you like patient to leave a urine sample at the lab or seen for an appointment? She is coming back to [place] today. documented in this encounter [facility] 01-09-2022 Miscellaneous Notes 3 days is typically enough for uncomplicated UTIs. No further treatment necessary at this time. She can start taking AZO bladder supplements to hopefully prevent future infections. No urine culture was done since patient was out of state. On 01/07/22 she was given Cipro 3 days and pyridium. She was also given Lotrisone cream for external vaginal irritation/itching. Behzad Vazquez RN documented in this encounter [facility] 01-07-2022 Miscellaneous Notes The following approved medications have been transmitted electronically. Signed Prescriptions Disp Refills ciprofloxacin HCl (CIPRO) 500 mg tablet 6 tablet 0 Sig: Take 1 tablet by mouth twice daily for 3 days. phenazopyridine (PYRIDIUM) 200 mg tablet 6 tablet 0 Sig: Take 1 tablet by mouth three times daily as needed. clotrimazole-betamethasone (LOTRISONE) cream 15 g 0 Sig: Apply 1 application to affected area twice daily. Pharmacy Information Pharmacy Address Telephone [id number] [place] [id number] Erin Ramirez RN Ordered Patient called back and pharmacy updated. Please order medication. Erin Ramirez RN Patient informed. and she will call us back with name of pharmacy Noted. Not sure that is UTI but since she is out of state and uncomfortable we will try 3 day course of abx and topical cream for external vaginal use. I called patient. She states that she has occasional pressure when she urinates. Denies any frequency. Does note burning on urination. States lower back does ache. Denies any fever or bleeding. Still notes redness ad itching tht she had at visit. Symptoms seemed like they improved for a day but now back to how she felt at time of visit. States she did not take 2nd Diflucan that was prescribed for her. Taking Probiotic. She is currently travelling to [place]. Will call us back and let us know a name of a pharmacy in case you want to call something in. More external itching or internal itching now? We can try topical steroid if external to see if that helps- could be contact irritation. Last seen in office on 12/31/21 documented in this encounter [facility] 12-31-2021 History of Presen t illness Narrative Daisy He is a 36 year old female who presents with concerns for vaginal infection. Patient states symptoms have been present for approximately a week and a half. Patient states she had unprotected intercourse with a partner approximately 2 weeks ago. Patient states she has been with this partner since September 2021. Patient states she did take Plan B 2 weeks ago despite being on ocps. Patient states she has been feeling burning and itching sensation. She tried Monistat without relief. Patient states she has been using vagasil on the external vagina which has given her relief there but internally she states her symptoms are still present. Patient denies any changes with soaps or detergents. She denies any discharge or odor. She reports some discomfort when urinating. She denies any fevers or abdominal pain. 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 subclinical (TSH 5-6), see phone encounter 02/04 PAST SURGICAL HISTORY Procedure Laterality Date DELIVERY ONLY 2009 , low transverse DELIVERY ONLY 07/19/15 , low transverse FISTULECT/FISTULOT, SUBMUSCULAR 10/25/13 posterior superficial PAST SURGICAL HISTORY OF 07/2006 jaw surgery due to bite abnomalitiy FAMILY HISTORY Problem Relation Age of Onset Hypertension Mother Asthma Mother Diabetes Mother GESTATIONAL DIABETES ONLY other (goiter) Mother no hypothyroidism Hypertension Father Cancer Maternal Grandmother PANCREATIC CANCER Thyroid Paternal Grandmother ?? specifics Alzheimer's Disease Paternal Grandmother Diabetes Maternal Uncle Social History Tobacco Use Smoking status: Never Smoker Smokeless tobacco: Never Used Substance Use Topics Alcohol use: Yes Comment: Seldom Drug use: No Current Outpatient Medications Medication Sig TRI-SPRINTEC 0.18/0.215/0.25 mg-35 mcg (28) Take 1 tablet by mouth once daily for 28 days. docosahexaenoic acid/epa (FISH OIL ORAL) Take by mouth. (Patient not taking: Reported on 05/03/2021 ) ascorbic acid, vitamin C, (VITAMIN C) 500 mg tablet Take 500 mg by mouth once daily. cyanocobalamin, vitamin B-12, (VITAMIN B-12 ORAL) Take by mouth. Phentermine HCl (ADIPEX-P) 37.5 mg capsule Take 37.5 mg by mouth. (Patient not taking: Reported on 05/03/2021) PARoxetine (PAXIL) 20 mg tablet (Patient not taking: Reported on 05/03/2021 ) loratadine (CLARITIN) 10 mg tablet Take 10 mg by mouth once daily. Cholecalciferol, Vitamin D3, (VITAMIN D) 1,000 unit cap Take 1,000 Units by mouth once daily. Pt takes 2 capsules daily MULTIVITAMIN ORAL Take by mouth once daily. CITALOPRAM HYDROBROMIDE (CELEXA ORAL) Take by mouth. levothyroxine (SYNTHROID) 88 mcg tablet Take 1 tablet by mouth once daily. No current facility-administered medications for this visit. Allergies As of Date: 12/31/2021 Allergen Noted Reaction ASHLIE [FEXOFENADINE HCL] 02/04/2007 Intolerance BIAXIN [CLARITHROMYCIN] 02/04/2007 GI Upset PENICILLINS 02/04/2007 Hives Fully Assessed 12/31/2021 REVIEW OF SYSTEMS Abdomen: no pain Bladder: mild dysuria when urine touches vulva.. Expanded ROS: GENERAL: Negative for fever Allergies and current medication updated:Yes EXAM: BP 108/72 Wt 176 lb (79.8kg) LMP 12/11/2021 GENERAL: pleasant, female in no apparent distress HEENT: Normocephalic and atraumatic NECK: full range of motion DERMATOLOGY: Normal, without lesions, non-icteric and non-hirsute ABDOMEN: soft, non-tender and no masses PELVIC: external genitalia normal, normal Bartholin's glands, urethra, [place]'s glands, no vulvar lesions, good vaginal support, physiologic discharge present, normal appearing perineal body and perianal region, cervix appears red. Some thick white to yellow discharge. BIMANUAL: uterus normal size, shape and consistency, no adnexal masses, non-tender and NO CMT NEURO: alert and oriented x3,exam grossly non-focal EXTREMITIES: normal ASSESSMENT AND PLAN: Encounter Diagnosis ICD-10-CM 1. Vulvovaginitis N76.0 2. Vaginal irritation N89.8 SUGEY / TRICHOMONAS AMPLIFICATION BACTERIAL VAGINOSIS AMPLIFICATION 3. Screen for STD (sexually transmitted disease) Z11.3 SUGEY / TRICHOMONAS AMPLIFICATION BACTERIAL VAGINOSIS AMPLIFICATION GC/CHLAMYDIA DNA DET 4. diflucan ordered today for 5. Vulvar hygiene reviewed Medical Decision Making: Problems: Low: Acute, uncomplicated illness or injury Data: Unique test(s) ordered: 3+ Risk: Moderate: Drug management Medical Decision Making Level: 4 - Moderate Miryam Lara MD documented in this encounter [facility] documented as of this encounter (statuses as of 12/31/2021) [facility] History of Past illness Narrative* Problem Noted Date Resolved Date Positive GBS test 07/12/2015 08/03/2015 Supervision of other normal , antepartu m 03/12/2015 08/03/2015 Previous delivery affecting , antepartum 03/12/2015 08/03/2015 Anal fistula 10/25/2013 03/12/2015 Routine general medical exam ination at a health care facility 12/26/2010 01/08/2012 Overview: 09/03/2010 -- Chika Viramontes CNP yearly physical Routine gynecological examination 12/26/2010 01/08/2012 Overview: [facility] Supervision of normal first 05/28/2010 10/06/2011 Allergic rhinitis, cause unspecified 02/15/2015 Overview: Allergy, airborne subst Temporomandibular joint disorders, unspecified 03/12/2015 documented as of this encounter (statuses as of 01/07/2022) [facility] History of Past illness Narrative* Problem Noted Date Resolved Date Positive GBS test 07/12/2015 08/03/2015 Supervision of other normal , antepartu m 03/12/2015 08/03/2015 Previous delivery affecting , antepartum 03/12/2015 08/03/2015 Anal fistula 10/25/2013 03/12/2015 Routine general medical exam ination at a health care facility 12/26/2010 01/08/2012 Overview: 09/03/2010 -- Chika Viramontes CNP yearly physical Routine gynecological examination 12/26/2010 01/08/2012 Overview: [facility], [facility] Supervision of normal first 05/28/2010 10/06/2011 Allergic rhinitis, cause unspecified 02/15/2015 Overview: Allergy, airborne subst Temporomandibular joint disorders, unspecified 03/12/2015 documented as of this encounter (statuses as of 01/09/2022) [facility] History of Past illness Narrative* Problem Noted Date Resolved Date Positive GBS test 07/12/2015 08/03/2015 Supervision of other normal , antepartu m 03/12/2015 08/03/2015 Previous delivery affecting , antepartum 03/12/2015 08/03/2015 Anal fistula 10/25/2013 03/12/2015 Routine general medical exam ination at a health care facility 12/26/2010 01/08/2012 Overview: 09/03/2010 -- Chika Viramontes CNP yearly physical Routine gynecological examination 12/26/2010 01/08/2012 Overview: [facility], [facility] Supervision of normal first 05/28/2010 10/06/2011 Allergic rhinitis, cause unspecified 02/15/2015 Overview: Allergy, airborne subst Temporomandibular joint disorders, unspecified 03/12/2015 documented as of this encounter (statuses as of 01/16/2022) [facility] History of Past illness Narrative* Problem Noted Date Resolved Date Positive GBS test 07/12/2015 08/03/2015 Supervision of other normal , antepartu m 03/12/2015 08/03/2015 Previous delivery affecting , antepartum 03/12/2015 08/03/2015 Anal fistula 10/25/2013 03/12/2015 Routine general medical exam ination at a health care facility 12/26/2010 01/08/2012 Overview: 09/03/2010 -- Chika Viramontes CNP yearly physical Routine gynecological examination 12/26/2010 01/08/2012 Overview: [facility], [facility] Supervision of normal first 05/28/2010 10/06/2011 Allergic rhinitis, cause unspecified 02/15/2015 Overview: Allergy, airborne subst Temporomandibular joint disorders, unspecified 03/12/2015 documented as of this encounter (statuses as of 01/17/2022) [facility] History of Past illness Narrative* Problem Noted Date Resolved Date Positive GBS test 07/12/2015 08/03/2015 Supervision of other normal , antepartu m 03/12/2015 08/03/2015 Previous delivery affecting , antepartum 03/12/2015 08/03/2015 Anal fistula 10/25/2013 03/12/2015 Routine general medical exam ination at a health care facility 12/26/2010 01/08/2012 Overview: 09/03/2010 -- Chika Viramontes CNP yearly physical Routine gynecological examination 12/26/2010 01/08/2012 Overview: [facility], [facility] Supervision of normal first 05/28/2010 10/06/2011 Allergic rhinitis, cause unspecified 02/15/2015 Overview: Allergy, airborne subst Temporomandibular joint disorders, unspecified 03/12/2015 documented as of this encounter (statuses as of 01/21/2022) [facility] History of Past illness Narrative* Problem Noted Date Resolved Date Positive GBS test 07/12/2015 08/03/2015 Supervision of other normal , antepartu m 03/12/2015 08/03/2015 Previous delivery affecting , antepartum 03/12/2015 08/03/2015 Anal fistula 10/25/2013 03/12/2015 Routine general medical exam ination at a health care facility 12/26/2010 01/08/2012 Overview: 09/03/2010 -- Chika Viramontes CNP yearly physical Routine gynecological examination 12/26/2010 01/08/2012 Overview: [facility], [facility] [place] Supervision of normal first 05/28/2010 10/06/2011 Allergic rhinitis, cause unspecified 02/15/2015 Overview: Allergy, airborne subst Temporomandibular joint disorders, unspecified 03/12/2015 documented as of this encounter (statuses as of 01/30/2022) [facility] History of Past illness Narrative* Problem Noted Date Resolved Date Positive GBS test 07/12/2015 08/03/2015 Supervision of other normal , antepartu m 03/12/2015 08/03/2015 Previous delivery affecting , antepartum 03/12/2015 08/03/2015 Anal fistula 10/25/2013 03/12/2015 Routine general medical exam ination at a health care facility 12/26/2010 01/08/2012 Overview: 09/03/2010 -- Chika Viramontes CNP yearly physical Routine gynecological examination 12/26/2010 01/08/2012 Overview: [facility], [facility] [place] Supervision of normal first 05/28/2010 10/06/2011 Allergic rhinitis, cause unspecified 02/15/2015 Overview: Allergy, airborne subst Temporomandibular joint disorders, unspecified 03/12/2015 documented as of this encounter (statuses as of 02/19/2022) [facility] History of Past illness Narrative* Problem Noted Date Resolved Date Positive GBS test 07/12/2015 08/03/2015 Supervision of other normal , antepartu m 03/12/2015 08/03/2015 Previous delivery affecting , antepartum 03/12/2015 08/03/2015 Anal fistula 10/25/2013 03/12/2015 Routine general medical exam ination at a health care facility 12/26/2010 01/08/2012 Overview: 09/03/2010 -- Chika Viramontes CNP yearly physical Routine gynecological examination 12/26/2010 01/08/2012 Overview: [facility], [facility] Supervision of normal first 05/28/2010 10/06/2011 Allergic rhinitis, cause unspecified 02/15/2015 Overview: Allergy, airborne subst Temporomandibular joint disorders, unspecified 03/12/2015 documented as of this encounter (statuses as of 04/18/2022) [facility] History of Past illness Narrative* Problem Noted Date Resolved Date Positive GBS test 07/12/2015 08/03/2015 Supervision of other normal , antepartu m 03/12/2015 08/03/2015 Previous delivery affecting , antepartum 03/12/2015 08/03/2015 Anal fistula 10/25/2013 03/12/2015 Routine general medical exam ination at a health care facility 12/26/2010 01/08/2012 Overview: 09/03/2010 -- Chika Viramontes CNP yearly physical Routine gynecological examination 12/26/2010 01/08/2012 Overview: [facility], [facility] Supervision of normal first 05/28/2010 10/06/2011 Allergic rhinitis, cause unspecified 02/15/2015 Overview: Allergy, airborne subst Temporomandibular joint disorders, unspecified 03/12/2015 documented as of this encounter (statuses as of 06/26/2022) [facility] History of Past illness Narrative* Problem Noted Date Resolved Date Positive GBS test 07/12/2015 08/03/2015 Supervision of other normal , antepartu m 03/12/2015 08/03/2015 Previous delivery affecting , antepartum 03/12/2015 08/03/2015 Anal fistula 10/25/2013 03/12/2015 Routine general medical exam ination at a health care facility 12/26/2010 01/08/2012 Overview: 09/03/2010 -- Chika Viramontes CNP yearly physical Routine gynecological examination 12/26/2010 01/08/2012 Overview: [facility], [facility] Supervision of normal first 05/28/2010 10/06/2011 Allergic rhinitis, cause unspecified 02/15/2015 Overview: Allergy, airborne subst Temporomandibular joint disorders, unspecified 03/12/2015 documented as of this encounter (statuses as of 07/18/2022) [facility] History of Past illness Narrative* Problem Noted Date Resolved Date Positive GBS test 07/12/2015 08/03/2015 Supervision of other normal , antepartu m 03/12/2015 08/03/2015 Previous delivery affecting , antepartum 03/12/2015 08/03/2015 Anal fistula 10/25/2013 03/12/2015 Routine general medical exam ination at a health care facility 12/26/2010 01/08/2012 Overview: 09/03/2010 -- Chika Viramontes CNP yearly physical Routine gynecological examination 12/26/2010 01/08/2012 Overview: [facility], [facility] [place] Supervision of normal first 05/28/2010 10/06/2011 Allergic rhinitis, cause unspecified 02/15/2015 Overview: Allergy, airborne subst Temporomandibular joint disorders, unspecified 03/12/2015 documented as of this encounter (statuses as of 08/08/2022) [facility] History of Past illness Narrative* Problem Noted Date Resolved Date Positive GBS test 07/12/2015 08/03/2015 Supervision of other normal , antepartu m 03/12/2015 08/03/2015 Previous delivery affecting , antepartum 03/12/2015 08/03/2015 Anal fistula 10/25/2013 03/12/2015 Routine general medical exam ination at a health care facility 12/26/2010 01/08/2012 Overview: 09/03/2010 -- Chika Viramontes CNP yearly physical Routine gynecological examination 12/26/2010 01/08/2012 Overview: [facility], [facility] Supervision of normal first 05/28/2010 10/06/2011 Allergic rhinitis, cause unspecified 02/15/2015 Overview: Allergy, airborne subst Temporomandibular joint disorders, unspecified 03/12/2015 documented as of this encounter (statuses as of 08/11/2022) [facility] History of Past illness Narrative* Problem Noted Date Resolved Date Positive GBS test 07/12/2015 08/03/2015 Supervision of other normal , antepartu m 03/12/2015 08/03/2015 Previous delivery affecting , antepartum 03/12/2015 08/03/2015 Anal fistula 10/25/2013 03/12/2015 Routine general medical exam ination at a health care facility 12/26/2010 01/08/2012 Overview: 09/03/2010 -- Chika Viramontes CNP yearly physical Routine gynecological examination 12/26/2010 01/08/2012 Overview: [facility], [facility] [place] Supervision of normal first 05/28/2010 10/06/2011 Allergic rhinitis, cause unspecified 02/15/2015 Overview: Allergy, airborne subst Temporomandibular joint disorders, unspecified 03/12/2015 documented as of this encounter (statuses as of 09/12/2022) [facility] History of Past illness Narrative* Problem Noted Date Resolved Date Positive GBS test 07/12/2015 08/03/2015 Supervision of other normal , antepartu m 03/12/2015 08/03/2015 Previous delivery affecting , antepartum 03/12/2015 08/03/2015 Anal fistula 10/25/2013 03/12/2015 Routine general medical exam ination at a health care facility 12/26/2010 01/08/2012 Overview: 09/03/2010 -- Chika Viramontes CNP yearly physical Routine gynecological examination 12/26/2010 01/08/2012 Overview: [facility], [facility] Supervision of normal first 05/28/2010 10/06/2011 Allergic rhinitis, cause unspecified 02/15/2015 Overview: Allergy, airborne subst Temporomandibular joint disorders, unspecified 03/12/2015 documented as of this encounter (statuses as of 10/31/2022) [facility] History of Past illness Narrative* Problem Noted Date Resolved Date Positive GBS test 07/12/2015 08/03/2015 Supervision of other normal , antepartu m 03/12/2015 08/03/2015 Previous delivery affecting , antepartum 03/12/2015 08/03/2015 Anal fistula 10/25/2013 03/12/2015 Routine general medical exam ination at a health care facility 12/26/2010 01/08/2012 Overview: 09/03/2010 -- Chika Viramontes CNP yearly physical Routine gynecological examination 12/26/2010 01/08/2012 Overview: [facility], [facility] Supervision of normal first 05/28/2010 10/06/2011 Allergic rhinitis, cause unspecified 02/15/2015 Overview: Allergy, airborne subst Temporomandibular joint disorders, unspecified 03/12/2015 documented as of this encounter (statuses as of 11/26/2022) [facility] History of Past illness Narrative* Problem Noted Date Resolved Date Positive GBS test 07/12/2015 08/03/2015 Supervision of other normal , antepartu m 03/12/2015 08/03/2015 Previous delivery affecting , antepartum 03/12/2015 08/03/2015 Anal fistula 10/25/2013 03/12/2015 Routine general medical exam ination at a health care facility 12/26/2010 01/08/2012 Overview: 09/03/2010 -- Chika Viramontes CNP yearly physical Routine gynecological examination 12/26/2010 01/08/2012 Overview: [facility], [facility] Supervision of normal first 05/28/2010 10/06/2011 Allergic rhinitis, cause unspecified 02/15/2015 Overview: Allergy, airborne subst Temporomandibular joint disorders, unspecified 03/12/2015 documented as of this encounter (statuses as of 11/26/2022) [facility] History of Past illness Narrative* Problem Noted Date Diagnosed Date Resolved Date Positive GBS test 07/12/2015 08/03/2015 Supervision of other normal , antepartum 03/12/2015 08/03/2015 Previous delivery a ffecting , antepartum 03/12/2015 08/03/2015 Anal fistula 10/25/2013 03/12/2015 Routine general medical exam ination at a health care facility 12/26/2010 01/08/2012 Overview: 09/03/2010 -- Chika Viramontes CNP yearly physical Routine gynecological examination 12/26/2010 01/08/2012 Overview: [facility], [facility] Supervision of normal first 05/28/2010 10/06/2011 Allergic rhinitis, cause unspecified 02/15/2015 Overview: Allergy, airborne subst Temporomandibular joint diso rders, unspecified 03/12/2015 documented as of this encounter (statuses as of 02/04/2023) [facility]12-17[facility]2015 History of Past illness Narrative* Problem Noted Date Diagnosed Date Resolved Date Positive GBS test 07/12/2015 08/03/2015 Supervision of other normal , antepartum 03/12/2015 08/03/2015 Previous delivery a ffecting , antepartum 03/12/2015 08/03/2015 Anal fistula 10/25/2013 03/12/2015 Routine general medical exam ination at a health care facility 12/26/2010 01/08/2012 Overview: 09/03/2010 -- Chika Viramontes CNP yearly physical Routine gynecological examination 12/26/2010 01/08/2012 Overview: [facility], [facility] [place] Supervision of normal first 05/28/2010 10/06/2011 Allergic rhinitis, cause unspecified 02/15/2015 Overview: Allergy, airborne subst Temporomandibular joint diso rders, unspecified 03/12/2015 documented as of this encounter (statuses as of 02/19/2023) [facility] note* Diagnosis Vulvovaginitis- Primary Vaginitis and vulvovaginitis, unspecified Vaginal irritation Unspecified noninflammatory disorder of vagina Screen for STD (sexually transmitted disease) Screening examination for venereal disease documented in this encounter [facility] note* Diagnosis Dysuria- Primary Vaginal irritation Unspecified noninflammatory disorder of vagina documented in this encounter [facility] note* Diagnosis BV (bacterial vaginosis)- Primary Vaginitis and vulvovaginitis, unspecified documented in this encounter [facility] note* Diagnosis Vaginal burning- Primary Other specified symptom associated with female genital organs Vaginal odor Unspecified symptom associated with female genital organs Dysuria Burn of urethra Screen for STD (sexually transmitted disease) Screening examination for venereal disease documented in this encounter [facility] note* Diagnosis Encounter for gynecological examination with abnormal finding- Primary Routine gynecological examination Encounter for surveillance of contraceptive pills Surveillance of previously prescribed contraceptive pill Class 1 obesity due to excess calories without serious comorbidity with body mass index (BMI) of 33.0 to 33.9 in adult documented in this encounter [facility] note* Diagnosis Recurrent vaginitis- Primary Vaginitis and vulvovaginitis, unspecified Pelvic pressure in female Other specified symptom associated with female genital organs documented in this encounter [facility] note* Diagnosis Acute vaginitis- Primary Vaginitis and vulvovaginitis, unspecified documented in this encounter [facility] note* Diagnosis Vulvar dermatitis- Primary Other inflammatory disease of cervix, vagina and vulva BV (bacterial vaginosis) Vaginitis and vulvovaginitis, unspecified Recurrent vaginitis Vaginitis and vulvovaginitis, unspecified documented in this encounter [facility] note* Diagnosis BV (bacterial vaginosis) Vaginitis and vulvovaginitis, unspecified Recurrent vaginitis Vaginitis and vulvovaginitis, unspecified documented in this encounter [facility] Summary Purpose Family History No Family History Records FoundNo Family History Records FoundNo Family History Records Found Advance Directives No Advanced Directives Records FoundNo Advanced Directives Records FoundNo Advanced Directives Records Found Additional Source Comments INFORMATION SOURCE (unrecogn ized section and content) DATE CREATED AUTHOR AUTHOR'S ORGANIZ ATION 02/19/2023 [facility] DATE CREATED AUTHOR AUTHOR'S ORGANIZ ATION 05/18/2023 [facility] Source Comments (unrecognize d section and content) In the event this informatio n is protected by the Federal Confidentiality of Alcohol and Drug Abuse Patient Records regulations: The Federal rules restrict any use of the information to criminally investigate or prosecute any alcohol or drug abuse patient.[facility] the event this information is protected by the Federal Confidentiality of Alcohol and Drug Abuse Patient Records regulations: The Federal rules restrict any use of the information to criminally investigate or prosecute any alcohol or drug abuse patient.[facility] the event this information is protected by the Federal Confidentiality of Alcohol and Drug Abuse Patient Records regulations: The Federal rules restrict any use of the information to criminally investigate or prosecute any alcohol or drug abuse patient.[facility] the event this information is protected by the Federal Confidentiality of Alcohol and Drug Abuse Patient Records regulations: The Federal rules restrict any use of the information to criminally investigate or prosecute any alcohol or drug abuse patient.[facility] the event this information is protected by the Federal Confidentiality of Alcohol and Drug Abuse Patient Records regulations: The Federal rules restrict any use of the information to criminally investigate or prosecute any alcohol or drug abuse patient.[facility] the event this information is protected by the Federal Confidentiality of Alcohol and Drug Abuse Patient Records regulations: The Federal rules restrict any use of the information to criminally investigate or prosecute any alcohol or drug abuse patient.[facility] the event this information is protected by the Federal Confidentiality of Alcohol and Drug Abuse Patient Records regulations: The Federal rules restrict any use of the information to criminally investigate or prosecute any alcohol or drug abuse patient.[facility] the event this information is protected by the Federal Confidentiality of Alcohol and Drug Abuse Patient Records regulations: The Federal rules restrict any use of the information to criminally investigate or prosecute any alcohol or drug abuse patient.[facility] the event this information is protected by the Federal Confidentiality of Alcohol and Drug Abuse Patient Records regulations: The Federal rules restrict any use of the information to criminally investigate or prosecute any alcohol or drug abuse patient.[facility] the event this information is protected by the Federal Confidentiality of Alcohol and Drug Abuse Patient Records regulations: The Federal rules restrict any use of the information to criminally investigate or prosecute any alcohol or drug abuse patient.[facility] the event this information is protected by the Federal Confidentiality of Alcohol and Drug Abuse Patient Records regulations: The Federal rules restrict any use of the information to criminally investigate or prosecute any alcohol or drug abuse patient.[facility] the event this information is protected by the Federal Confidentiality of Alcohol and Drug Abuse Patient Records regulations: The Federal rules restrict any use of the information to criminally investigate or prosecute any alcohol or drug abuse patient.[facility] the event this information is protected by the Federal Confidentiality of Alcohol and Drug Abuse Patient Records regulations: The Federal rules restrict any use of the information to criminally investigate or prosecute any alcohol or drug abuse patient.[facility] Hospital[facility] the event this information is protected by the Federal Confidentiality of Alcohol and Drug Abuse Patient Records regulations: The Federal rules restrict any use of the information to criminally investigate or prosecute any alcohol or drug abuse patient.[facility] Hospital[facility] the event this information is protected by the Federal Confidentiality of Alcohol and Drug Abuse Patient Records regulations: The Federal rules restrict any use of the information to criminally investigate or prosecute any alcohol or drug abuse patient.[facility] Hospital[facility] the event this information is protected by the Federal Confidentiality of Alcohol and Drug Abuse Patient Records regulations: The Federal rules restrict any use of the information to criminally investigate or prosecute any alcohol or drug abuse patient.[facility] Hospital[facility] the event this information is protected by the Federal Confidentiality of Alcohol and Drug Abuse Patient Records regulations: The Federal rules restrict any use of the information to criminally investigate or prosecute any alcohol or drug abuse patient.[facility] HospitalIn the event this information is protected by the Federal Confidentiality of Alcohol and Drug Abuse Patient Records regulations: The Federal rules restrict any use of the information to criminally investigate or prosecute any alcohol or drug abuse patient.[facility] HospitalIn the event this information is protected by the Federal Confidentiality of Alcohol and Drug Abuse Patient Records regulations: The Federal rules restrict any use of the information to criminally investigate or prosecute any alcohol or drug abuse patient.[facility] Reason for Visit (unrecogniz ed section and content) Reason Comments Dysuria Reason Onset Date Comments Refill Request 06/26/2022 Reason Comments Vaginal Problem Itching, possible di scharge Reason Comments Vaginal Discharge Specialty Diagnoses / Procedures Referred By Contac t Referred To Contact Gynecology Diagnoses Recurrent vaginitis Procedures CONSULT TO GYNECOLOGY OFFICE/OUTPATIENT [facility] 60-74 MINUTES Gabby Sheffield APRN.CN [address] [place] [address] Referral ID Status Reason Start Date Expiration Date V isits Requested Visits Authorized [id number] Closed PCP Requested Referral Auto-Generated Referral 09/12/2022 08/12/2023 1 1 Reason Comments Results Care Teams (unrecognized sec tion and content) [employer] Engineer Relationship Specialty Start Date End Date Matthew Vega MD PCP - General Family Practice 09/29/13 [employer] Relationship Specialty Start Date End Date Matthew Vega MD PCP - General Family Practice 09/29/13 [employer] Relationship Specialty Start Date End Date Matthew Vega MD PCP - General Family Practice 09/29/13 [employer] Engineer Relationship Specialty Start Date End Date Matthew Vega MD PCP - General Family Practice 09/29/13 [employer] Engineer Relationship Specialty Start Date End Date Matthew Vega MD PCP - General Family Practice 09/29/13 [employer] Engineer Relationship Specialty Start Date End Date Matthew Vega MD PCP - General Family Medicine 09/29/13 [employer] Engineer Relationship Specialty Start Date End Date Matthew Vega MD PCP - General Family Medicine 09/29/13 [employer] Engineer Relationship Specialty Start Date End Date Matthew Vega MD PCP - General Family Medicine 09/29/13 [employer] Engineer Relationship Specialty Start Date End Date Matthew Vega MD PCP - General Family Medicine 09/29/13 [employer] Engineer Relationship Specialty Start Date End Date Matthew Vega MD PCP - General Family Medicine 09/29/13 [employer] Engineer Relationship Specialty Start Date End Date Matthew Vega MD PCP - General Family Medicine 09/29/13 [employer] Engineer Relationship Specialty Start Date End Date Matthew Vega MD PCP - General Family Medicine 09/29/13 [employer] Engineer Relationship Specialty Start Date End Date Matthew Vega MD PCP - General Family Medicine 09/29/13 [employer] Engineer Relationship Specialty Start Date End Date Matthew Vega MD PCP - General Family Medicine 09/29/13 [employer] Engineer Relationship Specialty Start Date End Date Matthew Vega MD PCP - General Family Medicine 09/29/13 FOR RECORDS PERTAINING TO PATIENTS WHO ARE OR HAVE BEEN ENROLLED IN A CHEMICAL DEPENDENCY/SUBSTANCEABUSE PROGRAM, SOME INFORMATION MAY BE OMITTED. This clinical summary was aggregated from multiple sources. Caution should be exercised in using it in the provision of clinical care. This summary normalizes information from multiple sources, and as a consequence, information in this document may materially change the coding, format and clinical context of patient data. In addition, data may be omitted in some cases. CLINICAL DECISIONS SHOULD BE BASED ON THE PRIMARY CLINICAL RECORDS. [facility] [employer] [facility]. provides no warranty or guarantee of the accuracy or completeness of information in this document.
== END | disposition home or self-care (01) ==
PROVIDERS: PCP Internal Medicine; Referring Provider Nurse Practitioner Women's Health; Visit Provider Nurse Practitioner Women's Health
DX: N63.20 Unspecified lump in the left breast, unspecified quadrant (principal)
CPT/HCPCS: 76642; 77062; 77066; G0279

== ENCOUNTER → 2023-11-06 | Outpatient (CLI) | payer OTHER, SELFPAY ==
--- NOTE | 2023-11-06 10:33 | VDLE_ITS ---
Reason For Study: RLE PAIN RIGHT LEFT GSV is normal. CFV is compressible, spontaneous, phasic, CFV is compressible, spontaneous, phasic, competent, and demonstrates normal competent and demonstrates normal augmentation. augmentation. FV is compressible, spontaneous, phasic, competent and demonstrates normal augmentation. POP V is compressible, spontaneous, phasic, competent and demonstrates normal augmentation. T/P Trunk is compressible. PTV is compressible. RT PerV is compressible. Procedure This is a venous duplex using B-mode, color flow and spectral Doppler. Exam performed in department. The exam was diagnostic. A preliminary report was called and/or faxed to Kenisha LEWIS @ [phone] @ 11:05 am. VL/Venous Duplex US, Unilateral Interpretation Summary Deep veins of the right lower extremity are patent and compressible segmentally . There is no evidence of right lower extremity deep vein thrombosis. Valvular competence yesica ears intact within the proximal deep venous system on the right . The right great saphenous vein a ppears patent and compressible segmentally. The left common femoral vein is patent and compressib le . Ordering Physician: Miryam Hernandez Referring Physician: Laurence Bruno Performed By: Kathi Sykes, LORIE, RVT
== END | disposition home or self-care (01) ==
PROVIDERS: PCP Internal Medicine; Referring Provider Nurse Practitioner; Visit Provider Nurse Practitioner
DX: D68.51 Activated protein C resistance (principal); M79.604 Pain in right leg
CPT/HCPCS: 93971

== ENCOUNTER → 2024-01-06 | Outpatient (CLI) | payer OTHER, SELFPAY | END | disposition home or self-care (01) | PROVIDERS: PCP Internal Medicine; Referring Provider Internal Medicine; Visit Provider Internal Medicine | DX: J45.20 Mild intermittent asthma, uncomplicated (principal) | CPT/HCPCS: 94060; 94726; 94729 ==

== ENCOUNTER → 2024-03-15 | Outpatient (CLI) | payer OTHER, SELFPAY ==
[2024-03-15 12:41] LABS: Absolute Lymphocyte Count 1.84 X10^3/uL (0.83-4.51); Absolute Neutrophil Count 3.9 X10^3/uL (2.0-7.7); Basophil# 0.05 X10^3/uL; Basophil% 0.8 % (0-1); Eosinophil# 0.21 X10^3/uL; Eosinophils% 3.2 % (0-5); Hematocrit 40.7 % (37-47); Hemoglobin 13.3 g/dL (12.0-15.0); Lymphocyte # 1.84 X10^3/ul (0.83-4.51); Lymphocyte % 28.1 % (19-41); Mean Corp Hgb Conc 32.7 g/dL (32-36); Mean Corpuscular Hgb 30.1 pg (27.0-32.0); Mean Corpuscular Volume 92.1 fL (81-99); Mean Platelet Vol. 10.9 fl (6.2-12.0); Monocyte# 0.48 X10^3/uL; Monocyte% 7.3 % (0-10); NRBC Flagged by Analyzer 0 % (0-5); Neutrophil # 3.94 X10^3/uL (2.7-7.7); Neutrophil % 60.3 % (47-70); Platelet Count 269 K/mm3 (150-450); RBC Distribution Width SD 41.1 fl (35.1-43.9); Red Blood Count 4.42 M/mm3 (4.2-5.4); White Blood Count 6.5 K/mm3 (4.4-11.0)
[2024-03-15 13:39] LABS: ALB/GLOB Ratio 1.1 RATIO (0.9-2.4); AST(SGOT) 20 U/L (15-37); Alanine Aminotransfer ALT/SGPT 26 U/L (13-56); Albumin, Serum 3.7 g/dL (3.2-5.0); Alkaline Phosphatase 70 U/L (45-117); Anion Gap 8 (5-15); BUN 16 mg/dL (7-18); BUN/Creat Ratio 19.1 RATIO (10-20); Calcium,Total 9.4 mg/dL (8.5-10.1); Chloride 105 mmol/L (98-107); Cholesterol 157 mg/dL (200); Creatinine, Serum 0.84 mg/dL (0.55-1.02); EST Glomerular Filtration Rate 80 mL/min (>60); Est Glom Filt Rate - Afr Amer 97 mL/min (>60); Globulin 3.4 g/dL (2.2-4.2); Glucose 95 mg/dL (74-106); High Density Lipoprotein 53 mg/dL; Potassium 4.2 mmol/L (3.5-5.1); Protein, Total 7.1 g/dL (6.4-8.2); Sodium Level 137 mmol/L (136-145); Triglycerides 113 mg/dL; Very Low Density Lipoprotein 23 mg/dL (5-40)
== END | disposition home or self-care (01) ==
LOC: MTLAB 10:49
PROVIDERS: PCP Internal Medicine; Referring Provider Physician Assistant; Visit Provider Physician Assistant
DX: Z00.00 Encounter for general adult medical examination without abnormal findings (principal); E03.9 Hypothyroidism, unspecified
CPT/HCPCS: 36415; 80053; 80061; 84443; 85025

== ENCOUNTER → 2024-05-04 | Outpatient (CLI) | payer OTHER, SELFPAY ==
[2024-05-04 12:57] LABS: Follicle Stimulating Hormone 3.3 mIU/mL
[2024-05-09 00:07] LABS: Estrogen, Total, Serum 503 pg/mL (.)
== END | disposition home or self-care (01) ==
LOC: BIMLAB 10:00
PROVIDERS: PCP Internal Medicine; Referring Provider Internal Medicine; Visit Provider Internal Medicine
DX: R53.83 Other fatigue (principal)
CPT/HCPCS: 36415; 82627; 82672; 83001; 83002; 82626

== ENCOUNTER → 2024-06-02 | Outpatient (CLI) | payer OTHER, SELFPAY | END | disposition home or self-care (01) | LOC: SL 10:16 | PROVIDERS: PCP Internal Medicine; Referring Provider Internal Medicine; Visit Provider Internal Medicine | DX: G47.10 Hypersomnia, unspecified (principal); R29.818 Other symptoms and signs involving the nervous system | CPT/HCPCS: 95806 ==

== ENCOUNTER → 2024-07-13 | Outpatient (CLI) | payer OTHER, SELFPAY ==
--- NOTE | 2024-07-13 08:08 | ECHOD_ITS ---
Version 2 Reason For Study: Chest Pain, Dizziness Procedure This was a 2D Doppler, Color Flow transthoracic echocardiogram. Exam performed in department. Left Ventricle Normal LV size. Left ventricular systolic function is normal. The left ventricular ejection fraction is 65 %. No regional wall motion abnormalities noted. Right Ventricle Normal RV size. Normal systolic function. Atria Normal left atrium. Normal right atrium. Mitral Valve Normal mitral valve. Tricuspid Valve Normal tricuspid valve. Aortic Valve Trisinus/trileaflet aortic valve. Pulmonic Valve Normal pulmonic valve. Great Vessels Normal aortic root. The pulmonary artery is normal size. Normal inferior vena cava. Pericardium/Pleural No pericardial effusion. MMode/2D Measurements & Calculations LVIDd: 4.6 cm IVSd: 0.98 cm Ao root diam: 2.9 cm LVIDs: 2.8 cm LVPWd: 0.93 cm RVDd: 3.0 cm FS: 37.6 % LAV(MOD-bp): 43.4 ml LVAd ap4: 26.3 cm2 SV(MOD-sp4): 48.3 ml LAV(MOD-bp) Indexed: 22.7 ml/m2 LVLd ap4: 7.6 cm SI(MOD-sp4): 25.3 ml/m2 LAV(MOD-sp2): 44.2 ml EDV(MOD-sp4): 75.2 ml LAV(MOD-sp4): 42.6 ml EDV(sp4-el): 77.4 ml LVAs ap4: 13.6 cm2 LVLs ap4: 5.9 cm ESV(MOD-sp4): 26.9 ml ESV(sp4-el): 26.9 ml EF(MOD-sp4): 64.2 % EF(sp4-el): 65.3 % SV(sp4-el): 50.5 ml LA A4 area: 15.5 cm2 LA dimension(2D): 3.7 cm RA A4 area: 11.9 cm2 TAPSE: 2.6 cm Time Measurements MV dec time: 0.19 sec Doppler Measurements & Calculations MV E max john: 88.3 cm/sec Lat Peak E' John: 14.4 cm/sec Med Peak E' John: 11.1 cm/sec MV A max john: 58.4 cm/sec E/E' lat: 6.1 E/E' med: 7.9 MV E/A: 1.5 MV V2 max: 116.3 cm/sec MV P1/2t max john: 117.8 cm/sec Ao V2 max: 131.0 cm/sec MV max P.4 mmHg MV P1/2t: 70.1 msec Ao max P.9 mmHg MV V2 mean: 58.5 cm/sec Ao V2 mean: 93.7 cm/sec MV mean P.7 mmHg MV dec slope: 492.2 cm/sec2 Ao mean P.0 mmHg MV V2 VTI: 27.6 cm MVA(P1/2t): 3.1 cm2 Ao V2 VTI: 29.1 cm AV (velocity ratio): 0.81 LV V1 max: 109.9 cm/sec PA V2 max: 86.8 cm/sec LV V1 max P.8 mmHg LV V1 mean P.8 mmHg LV V1 mean: 77.4 cm/sec LV V1 VTI: 23.5 cm ECHO/Echo Complete Interpretation Summary Normal LV size. Left ventricular systolic function is normal. The left ventricular ejection fraction is 65 %. Structurally normal valves. Ordering Physician: Laurence Oates Referring Physician: Laurence Oates Performed By: Jayden Gan RCS
== END | disposition home or self-care (01) ==
LOC: PSN 08:05
PROVIDERS: PCP Internal Medicine; Referring Provider Internal Medicine; Visit Provider Internal Medicine
DX: R07.89 Other chest pain (principal); R42 Dizziness and giddiness
CPT/HCPCS: 93225; 93226; 93306

== ENCOUNTER → 2024-07-13 | Outpatient (CLI) | payer OTHER, SELFPAY ==
[2024-07-22 12:08] LABS: HPV APTIMA, High Risk Negative (Negative)
== END | disposition home or self-care (01) ==
LOC: LABSPEC 10:59
PROVIDERS: PCP Internal Medicine; Referring Provider Nurse Practitioner Women's Health; Visit Provider Nurse Practitioner Women's Health
DX: Z12.4 Encounter for screening for malignant neoplasm of cervix (principal)
CPT/HCPCS: 87624; 88175; G0145

== ENCOUNTER → 2024-08-05 | Outpatient (CLI) | payer OTHER, SELFPAY ==
--- NOTE | 2024-08-05 11:58 | BI_ITS ---
MAMMOGRAPHY - BILATERAL SCREENING REASON FOR EXAM: Female, 38 years old. Routine annual screening examination. PERTINENT HISTORY: Non-contributory. TECHNIQUE: Digital bilateral breast dante (3D mammographic acquisition) in the CC and MLO projections. 2-D mediolateral oblique (MLO) and craniocaudad (CC) views of both breasts were obtained. CAD: Full Field Digital Mammography with Computer Added Detection was performed. COMPARISON: Comparison is made with prior study August 21, 2023. FINDINGS: Breast Composition: The breasts are extremely dense, which lowers the sensitivity of mammography. There are no dominant masses or suspicious calcifications. No other significant abnormalities are identified. There has been no significant change since the prior study. BI/SCRN MAMM (CAD)W/DANTE BILAT IMPRESSION: Stable bilateral screening mammogram. Yearly follow-up mammogram recommended. (A) ASSESSMENT CATEGORY: BIRADS Category 1: Negative. A letter regarding these results will be sent to the patient by the facility within 30 days. Approximately 10% of breast cancers are not detected by mammography. A normal mammogram should not delay biopsy of a clinically suspicious abnormality. [id number] Electronically Signed: Eduardo Rodrigues MD at 12:52 EST ,
== END | disposition home or self-care (01) ==
LOC: OPBI 11:58
PROVIDERS: PCP Internal Medicine; Referring Provider Nurse Practitioner Women's Health; Visit Provider Nurse Practitioner Women's Health
DX: Z12.31 Encounter for screening mammogram for malignant neoplasm of breast (principal)
CPT/HCPCS: 77063; 77067

== ENCOUNTER → 2025-01-25 | Outpatient (CLI) | payer OTHER, SELFPAY | END | disposition home or self-care (01) | PROVIDERS: PCP Internal Medicine; Referring Provider Internal Medicine; Visit Provider Internal Medicine | DX: R10.2 Pelvic and perineal pain (principal) | CPT/HCPCS: 87077; 87086; 87088 ==

== ENCOUNTER → 2025-01-31 | Outpatient (CLI) | payer OTHER, SELFPAY ==
[2025-01-31 16:03] LABS: Hematocrit 40.8 % (37-47); Hemoglobin 13.5 g/dL (12.0-15.0); Immature Granulocytes Count 0.030 X10^3/uL (0.0-0.0); Mean Corp Hgb Conc 33.1 g/dL (32-36); Mean Corpuscular Volume 92.5 fL (81-99); Mean Platelet Vol. 11.3 fl (6.2-12.0); NRBC Flagged by Analyzer 0 % (0-5); Platelet Count 267 K/mm3 (150-450); RBC Distribution Width CV 12.3 % (11.6-14.6); RBC Distribution Width SD 42.0 fl (35.1-43.9); Red Blood Count 4.41 M/mm3 (4.2-5.4); White Blood Count 6.9 K/mm3 (4.4-11.0)
[2025-01-31 16:46] LABS: AST(SGOT) 21 U/L (<=31); Alanine Aminotransfer ALT/SGPT 19 U/L (<=34); Albumin, Serum 4.3 g/dL (3.5-5.0); Alkaline Phosphatase 59 U/L (35-104); Anion Gap 10 (5-15); BUN 13 mg/dL (4-19); BUN/Creat Ratio 14.5 RATIO (10-20); Calcium,Total 9.3 mg/dL (7.6-11.0); Carbon Dioxide 23.5 mmol/L (21.0-32.0); Chloride 104 mmol/L (98-108); Globulin 2.9 g/dL (2.2-4.2); Glucose 81 mg/dL (70-99); Potassium 4.2 mmol/L (3.3-5.1)
== END | disposition home or self-care (01) ==
LOC: BIMLAB 11:49
PROVIDERS: PCP Internal Medicine; Referring Provider Internal Medicine; Visit Provider Internal Medicine
DX: E03.9 Hypothyroidism, unspecified (principal); J45.20 Mild intermittent asthma, uncomplicated; N91.2 Amenorrhea, unspecified
CPT/HCPCS: 36415; 80053; 84443; 85025

== ENCOUNTER → 2025-03-22 | Outpatient (CLI) | payer OTHER, SELFPAY ==
--- NOTE | 2025-03-22 12:37 | MRI_ITS ---
PROCEDURE: BRAIN W/WO CONTRAST 03/22/2025 REASON FOR EXAM: DIZZINESS TECHNIQUE: BRAIN W/WO CONTRAST Multiplanar and multisequence images were obtained. CONTRAST: Cecy scan VOLUME: 19 mL FINDINGS: There is no pathologic diffusion restriction. There is no hydrocephalus. Coronal T2 weighted images through the temporal lobes demonstrate no hippocampal asymmetry. Normal optic chiasm. There is no Chiari deformity. Normal brainstem and cerebellum. No pathologic flow voids. No extra-axial masses, fluid collections or demyelination. No hemorrhage. Postcontrast images are unremarkable MRI/Brain W/WO Contrast IMPRESSION: Study within normal limits [facility]
== END | disposition home or self-care (01) ==
PROVIDERS: PCP Internal Medicine; Referring Provider Internal Medicine; Visit Provider Internal Medicine
DX: R42 Dizziness and giddiness (principal)
CPT/HCPCS: 70553; A9575

== ENCOUNTER → 2025-07-18 | Outpatient (CLI) | payer OTHER, SELFPAY ==
--- NOTE | 2025-07-18 10:47 | RAD_ITS ---
PROCEDURE: CHEST PA AND LATERAL 07/18/2025 REASON FOR EXAM: COUGH TECHNIQUE: Procedure Code: RADCXR Modality: DX Procedure: CHEST PA AND LATERAL COMPARISON: 12/18/2023 FINDINGS: Lungs: Lungs clear of pneumonia and congestion. Pleura: No pleural effusions, thickening, or pneumothorax. Heart: Normal in size and configuration. Mediastinum/Emelia: Unremarkable. Great vessels: Unremarkable. Bones/soft tissues: Unremarkable. RAD/Chest PA and Lateral IMPRESSION: No active cardiopulmonary disease. Reading Location: [place] [address]
[2025-07-19 21:07] LABS: Chlamydia By Nucleic Acid AMP Negative (Negative); Gonococcus By Nucleic Acid AMP Negative (Negative)
== END | disposition home or self-care (01) ==
PROVIDERS: Nurse Practitioner Women's Health; PCP Internal Medicine; Referring Provider Physician Assistant; Visit Provider Physician Assistant
DX: R05.9 Cough, unspecified (principal); N89.8 Other specified noninflammatory disorders of vagina
CPT/HCPCS: 71046; 87070; 87077; 87205; 87491; 87591